=== PATIENT | male | born 1950 | race Caucasian/White ===

== ENCOUNTER → 2017-02-17 | Outpatient (CLI) | payer BC ==
[2017-02-17 09:35] LABS: URINE APPEARANCE CLEAR (CLEAR); URINE BILIRUBIN NEG (NEG); URINE COLOR YELLOW; URINE NITRITE NEG (NEG); URINE SPECIFIC GRAVITY 1.009 (1.000-1.030); UROBILINOGEN NEG (NEG)
[2017-02-17 09:37] LABS: BASO % 0.6 %; BASO ABS # 0.03 K/uL (0-0.2); COMPLETE YES; HEMATOCRIT 42.4 % (42-52); IG% 0.4 %; LYMPH % 30.4 %; LYMPH ABS # 1.55 K/uL (1.2-3.4); MEAN CELL VOLUME 90.4 fL (80-100); MEAN CORPUSCULAR HGB CONC 35.4 g/dl (32-36); MEAN PLATELET VOLUME 10.1 fL (7.4-10.4); MONO % 12.7 %; NEUT % 47.9 %; PLATELET COUNT 183 K/uL (130-400); RED BLOOD COUNT 4.69 M/uL (4.7-6.1)
[2017-02-17 09:49] LABS: MANUAL MICROSCOPIC REQUIRED? NO; REVIEW REQ? NO
[2017-02-17 09:55] LABS: ALT/SGPT 75 U/L (12-78); AST/SGOT 38 U/L (15-37); BLOOD UREA NITROGEN 17 mg/dl (7-18); BUN/CREATININE RATIO 15.5 (10-20); CALCIUM 8.5 mg/dl (8.5-10.1); CARBON DIOXIDE 28 mmol/L (21-32); CHLORIDE 106 mmol/L (98-107); GLUCOSE 92 mg/dl (70-99); POTASSIUM 4.2 mmol/L (3.5-5.1); SODIUM 139 mmol/L (136-145)
[2017-02-17 09:58] LABS: ESTIMATED AVERAGE GLUCOSE 117 mg/dl; HA1C FLAG Normal (Normal)
[2017-02-17 10:06] LABS: ALB/GLOB RATIO 1.1 (0.9-2); ALKALINE PHOSPHATASE 80 U/L (45-117); CHOLESTEROL 130 mg/dl (0-200); CHOLESTEROL/HDL RATIO 2.3; HDL CHOLESTEROL 57 mg/dl; LDL CHOLESTEROL CALCULATED 62 mg/dl; TRIGLYCERIDES 54 mg/dl (0-150); VERY LOW DENSITY LIPOPROT CALC 11 mg/dl
--- NOTE | 2017-02-23 12:48 | CODING QUERY MEDICAL NECESSITY ---
SUPPORTING DIAGNOSIS NEEDED A supporting diagnosis is required for the test/procedure performed on this patient in order for us to be reimbursed by the patient's insurance. Please provide a supporting diagnosis for the following test/procedure listed below next to the test name along with your signature. *If there is no additional diagnosis for this patient that would support the following test/procedure please document that below next to the test/procedure. Test(s)/Procedure(s) that require a supporting diagnosis: * HEMOGLOBIN A1C DIAGNOSIS: * PSA DIAGNOSIS: Provider Signature: Date: Thank you Malina Miles [employer] Once completed, please kindly fax back to [phone] For questions please call [phone]
== END | disposition home or self-care (01) ==
LOC: C.LAB1850 07:27
PROVIDERS: ATTEND Internal Medicine Pulmonary Disease
DX: J45.909 Unspecified asthma, uncomplicated (principal); R73.9 Hyperglycemia, unspecified; N40.1 Benign prostatic hyperplasia with lower urinary tract symptoms

== ENCOUNTER → 2017-10-28 | Day surgery (SDC) | payer BC, OTHER ==
[2017-10-20 14:56] VITALS: Ht 182.9 cm; Wt 90.9 kg
[~2017-10-28] VITALS: Ht 182.9 cm; Wt 90.9 kg
[~2017-10-28] MED LIST: ASPI81TA28 PO; ATOR-22 PO; LIDOCAINE HCL 2% 2 ML VIAL (20MG/ML) ONE; MOME6000; OMEG10007 PO; PROPOFOL IV EMULSION 10 MG/ML 20 ML VIAL ONE; SODIUM CHLORIDE 0.9% 500ML 500 ML IV ONE; TAMS0.4C38 PO; VNTHFA/IN INH
--- NOTE | 2017-10-28 08:46 | Endo History and Physical ---
History & Physical Date of Service: October 28, 2017. Chief Complaint: Screening Referring Physician: Dr. Braun History of Present Illness 67 yo CM who presents for screening colonoscopy. Past Surgical History Hx Cardiac Surgery: No Hx Internal Defibrillator: No Hx Pacemaker: No Hx Abdominal Surgery: No Hx of Implantable Prosthesis: No Hx Cancer Surgery: No Hx Thoracic Surgery: No Hx Orthopedic: No Hx Urinary Tract Surgery: No Family History None Social History Smoking Status: Never Smoker Hx Substance Use: No Hx Alcohol Use: Yes (WINE IN MODERATION) Allergies Coded Allergies: Penicillins (Verified Adverse Reaction, Mild, UNKNOWN, 10/20/17) Current Medications Reported Home Medications Medications Dose Route/Sig Max Daily Dose Days Date Category Dose Instructions Ventolin Hfa (Albuterol) 200 Puffs/87240 Mcg Aers 2 Puffs INH Q6H 10/20/17 Reported Flomax (Tamsulosin Hcl) 0.4 Mg Cap 1 Cap PO HS 30 10/20/17 Reported Mometasone Furoate (Mometasone Furoate (Nasal)) 50 Mcg/Act Spr 2 [place] NA DAILY 10/20/17 Reported TAKES FOR ALLERGIES [place]-3 (Fish Oil) 1 Ea Cap 1 Cap PO DAILY 10/20/17 Reported Lipitor (Atorvastatin Calcium) 20 Mg Tab 1 Tab PO DAILY 30 10/20/17 Reported Aspirin Ec (Aspirin) 81 Mg Tab 81 Mg PO DAILY 10/20/17 Reported Vital Signs Weight (Kilograms): 90.91 Height (Feet): 6 Height (Inches): 0 Date Time Temp Pulse Resp B/P (MAP) Pulse Ox O2 Delivery O2 Flow Rate FiO2 10/28/17 08:11 36.7 77 18 169/94 (119) 99 Room Air Physical Exam General Appearance: WD/WN, no apparent distress Respiratory/Chest: Auscultation: breath sounds normal Cardiovascular: Heart Auscultation: RRR Abdomen: Bowel Sounds: normal Inspection & Palpation: soft, non-distended, no tenderness, guarding & rebound Assessment and Plan Assessment: 67 yo CM who presents for screening colonoscopy. Plan: Proceed with colonoscopy.
--- NOTE | 2017-10-28 09:16 | GI REPORT ---
Patient Name: Gordon Black Procedure Date: 10/28/2017 8:25 AM Date of : 1950 Admit Type: Outpatient Age: 67 Gender: Male Attending MD: Juan Boyce DO Procedure: Colonoscopy Providers: Juan Boyce DO Referring MD: Erik Braun Indications: Screening for colorectal malignant neoplasm Medicines: Monitored Anesthesia Care Complications: No immediate complications. Estimated Blood Loss: Estimated blood loss: none. Procedure: Pre-Anesthesia Assessment: - Prior to the procedure, a History and Physical was performed, and patient medications and allergies were reviewed. The patient's tolerance of previous anesthesia was also reviewed. The risks and benefits of the procedure and the sedation options and risks were discussed with the patient. All questions were answered, and informed consent was obtained. Prior Anticoagulants: The patient has taken aspirin, last dose was 4 days prior to procedure. ASA Grade Assessment: II - A patient with mild systemic disease. After reviewing the risks and benefits, the patient was deemed in satisfactory condition to undergo the procedure. After I obtained informed consent, the scope was passed under direct vision. Throughout the procedure, the patient's blood pressure, pulse, and oxygen saturations were monitored continuously. The scope was introduced through the anus and advanced to the terminal ileum. The colonoscopy was performed without difficulty. The patient tolerated the procedure well. The quality of the bowel preparation was good. The terminal ileum, ileocecal valve, appendiceal orifice, and rectum were photographed. Findings: A 4 mm polyp was found in the transverse colon. The polyp was sessile. The polyp was removed with a cold snare. Resection and retrieval were complete. Two sessile polyps were found in the rectum and sigmoid colon. The polyps were 8 to 10 mm in size. These polyps were removed with a hot snare. Resection and retrieval were complete. Multiple small-mouthed diverticula were found in the sigmoid colon. Non-bleeding internal hemorrhoids were found during retroflexion. The hemorrhoids were small. Impression: - One 4 mm polyp in the transverse colon, removed with a cold snare. Resected and retrieved. - Two 8 to 10 mm polyps in the rectum and in the sigmoid colon, removed with a hot snare. Resected and retrieved. - Diverticulosis in the sigmoid colon. - Non-bleeding internal hemorrhoids. Recommendation: - Resume previous diet. - Continue present medications. - Repeat colonoscopy for surveillance based on pathology results. - Return to primary care physician as previously scheduled. Juan Boyce, DO 10/28/2017 9:15:43 AM This report has been signed electronically. Note Initiated On: 10/28/2017 8:25 AM Number of Addenda: 0 I attest to the content of the Intraoperative Record and orders documented therein, exceptions below {[id number]}
--- NOTE | 2017-10-28 09:17 | Discharge Instructions ---
Endoscopy Patient Instructions Date / Procedure(s) Performed October 28, 2017. Colonoscopy Allergy Information Coded Allergies: Penicillins (Verified Adverse Reaction, Mild, UNKNOWN, 10/20/17) Discharge Date / Findings October 28, 2017. Colon polyps Rectal polyp Diverticulosis Internal hemorrhoids Medication Instructions OK to resume all medications today as prescribed Reported Home Medications Medications Dose Route/Sig Max Daily Dose Days Date Category Dose Instructions Ventolin Hfa (Albuterol) 200 Puffs/83354 Mcg Aers 2 Puffs INH Q6H 10/20/17 Reported Flomax (Tamsulosin Hcl) 0.4 Mg Cap 1 Cap PO HS 30 10/20/17 Reported Mometasone Furoate (Mometasone Furoate (Nasal)) 50 Mcg/Act Spr 2 [place] NA DAILY 10/20/17 Reported TAKES FOR ALLERGIES [place]-3 (Fish Oil) 1 Ea Cap 1 Cap PO DAILY 10/20/17 Reported Lipitor (Atorvastatin Calcium) 20 Mg Tab 1 Tab PO DAILY 30 10/20/17 Reported Aspirin Ec (Aspirin) 81 Mg Tab 81 Mg PO DAILY 10/20/17 Reported Provider Instructions Activity Restrictions - No exercising or heavy lifting for 24 hours. - Do not drink alcohol the day of the procedure. - Do not drive a car or operate machinery until the day after the procedure. - Do not make any important decisions or sign important papers in 24 hours after the procedure. Following Day: - Return to full activity which may include returning to work/school. Diet Start your diet with liquids and light foods (jello, soup, juice, toast). Then eat your usual diet if not nauseated. Treatment For Common After Affects For mild abdominal pain, bloating, or excessive gas: - Rest - Eat lightly - Lie on right side Follow-Up Information Follow-up with Dr. Braun as scheduled Anesthesia Information What You Should Know You have had a procedure that required some medicine to reduce anxiety and discomfort. This treatment is called moderate sedation. After receiving the treatment, you may be sleepy, but you will be able to breathe on your own. The effects of the treatment may last for several hours. Follow these instructions along with Activity/Diet recommendations noted above: * Do NOT do anything where dizziness or clumsiness would be dangerous. * Rest quietly at home today, then you can be up and about tomorrow. * Have a responsible person stay with you the rest of today. * You may have had an I.V. today. If so, you may take the dressing off later today. Recommendations Call your doctor if: * Trouble breathing * Continuous vomiting for more than 24 hours * Temperature above 101 degrees * Severe abdominal pain or bloating * Pain not relieved by pain medicine ordered * There is increased drainage or redness from any incision * A large amount of rectal bleeding greater than 2-3 tablespoons. (If you had a polyp/s removed or have hemorrhoids, a small amount of blood - from the rectum is to be expected.) * You have any unanswered questions or concerns. IN THE EVENT OF A SERIOUS EMERGENCY, GO TO THE NEAREST EMERGENCY ROOM Your discharge instructions were prepared by provider Juan Boyce. Patient Instructions Signature Page Gordon Black Patient (or Guardian) Signature/Date: I have read and understand the instructions given to me by my caregivers. Caregiver/RN/Doctor Signature/Date: The above-named patient and/or guardian has received patient instructions on this date. + Original Patient Signature Page (only) stays with chart. Please make copy for patient.
[2017-10-28 09:49] VITALS: BP 162/93; PULSE 67; O2SAT 100
--- NOTE | 2017-10-28 09:49 | Anesthesiology Progress Note ---
Anesthesia Post Op Note Date & Time October 28, 2017 at 09:48 Vital Signs Pain Intensity: 0 Vital Signs Past 12 Hours Date Time Temp Pulse Resp B/P (MAP) Pulse Ox O2 Delivery O2 Flow Rate FiO2 10/28/17 09:31 66 18 123/92 (102) 99 Room Air 10/28/17 09:16 73 18 124/67 (86) 99 Room Air 10/28/17 08:11 36.7 77 18 169/94 (119) 99 Room Air Notes Mental Status: alert / awake / arousable, participated in evaluation Pt Amnestic to Procedure: Yes Nausea / Vomiting: adequately controlled Pain: adequately controlled Airway Patency, RR, SpO2: stable & adequate BP & HR: stable & adequate Hydration State: stable & adequate Anesthetic Complications: no major complications apparent
== END | disposition home health service (06) ==
LOC: C.GI 07:26
PROVIDERS: ATTEND Internal Medicine
DX: Z12.11 Encounter for screening for malignant neoplasm of colon (principal); K62.1 Rectal polyp; D12.5 Benign neoplasm of sigmoid colon; D12.3 Benign neoplasm of transverse colon; K57.30 Diverticulosis of large intestine without perforation or abscess without bleeding; K64.8 Other hemorrhoids; J45.909 Unspecified asthma, uncomplicated; Z88.0 Allergy status to penicillin; Z79.899 Other long term (current) drug therapy; Z79.82 Long term (current) use of aspirin

== ENCOUNTER → 2018-02-10 | Outpatient (CLI) | payer OTHER ==
[~2018-02-10] MED LIST changes: -LIDOCAINE HCL 2% 2 ML VIAL (20MG/ML) ONE; -PROPOFOL IV EMULSION 10 MG/ML 20 ML VIAL ONE; -SODIUM CHLORIDE 0.9% 500ML 500 ML IV ONE
[2018-02-10 10:11] LABS: HEMOGLOBIN A1C 5.8 % (4.5-5.6)
[2018-02-10 10:16] LABS: ALBUMIN 4.1 gm/dl (3.4-5.0); ALKALINE PHOSPHATASE 82 U/L (45-117); ALT/SGPT 53 U/L (12-78); AST/SGOT 32 U/L (15-37); BLOOD UREA NITROGEN 15 mg/dl (7-18); CALCIUM 8.5 mg/dl (8.5-10.1); CARBON DIOXIDE 28 mmol/L (21-32); CHOLESTEROL 134 mg/dl (0-200); GLUCOSE 89 mg/dl (70-99); LDL CHOLESTEROL CALCULATED 66 mg/dl; POTASSIUM 3.9 mmol/L (3.5-5.1); SODIUM 136 mmol/L (136-145); TOTAL PROTEIN 7.5 gm/dl (6.4-8.2)
== END | disposition home or self-care (01) ==
LOC: C.LAB1850 08:03
PROVIDERS: ATTEND Internal Medicine Pulmonary Disease
DX: J30.9 Allergic rhinitis, unspecified (principal); J45.909 Unspecified asthma, uncomplicated; R73.9 Hyperglycemia, unspecified; E78.5 Hyperlipidemia, unspecified

== ENCOUNTER 2023-03-26 02:58 | Observation (INO) ==
[2023-03-26] MEDS ORDERED: OPTIRAY 320 125ml IV ONE (03:28)
--- NOTE | 2023-03-26 03:56 | CT Scan Report ---
Exam(s): CT HEAD Without Contrast EXAM: CT Head Without Intravenous Contrast CLINICAL HISTORY: Reason for exam: neuro deficit, acute stroke suspected. TECHNIQUE: Axial computed tomography images of the head/brain without intravenous contrast. CTDI is 46.15 mGy and DLP is 871.05 mGy-cm. Automated exposure control was utilized for the study. A dose lowering technique was utilized adhering to the principles of ALARA. COMPARISON: None. FINDINGS: Brain: Mild generalized brain atrophy. Decreased attenuation within the deep white matter compatible with mild microangiopathic white matter disease. No hemorrhage. Ventricles: Unremarkable. No ventriculomegaly. Bones/joints: Unremarkable. No acute fracture. Soft tissues: Unremarkable. Sinuses: Mucosal thickening of bilateral ethmoids and maxillary sinuses, likely sequela of prior sinusitis. No air-fluid level seen. Mastoid air cells: Unremarkable as visualized. No mastoid effusion. IMPRESSION: No acute intracranial process. Communications: Call Doctor Stroke Electronically signed by: Annika Bonilla MD 03/26/23 03:55 AM
[2023-03-26 03:57] LABS: Basophils # (auto) 0.02 K/uL (0.00-0.20); Basophils % (auto) 0.3 %; Eosinophils # (auto) 0.05 K/uL (0.00-0.50); Eosinophils % (auto) 0.7 %; Hematocrit (blood only) 32.2 % (42.0-52.0); Hemoglobin 11.5 g/dl (14.0-18.0); Immature Granulocytes # (auto) 0.03 K/uL (0.01-0.20); Immature Granulocytes % (auto) 0.4 %; Lymphocytes # (auto) 0.77 K/uL (1.20-3.40); Lymphocytes % (auto) 10.8 %; Mean Corpuscular Hemoglobin 31.4 pg (25.0-34.0); Mean Corpuscular Hgb Conc 35.7 g/dL (32.0-36.0); Mean Platelet Volume 10.5 fL (9.4-12.4); Monocytes # (auto) 0.71 K/uL (0.11-0.59); Neutrophils # (auto) 5.53 K/uL (1.40-6.50); Neutrophils % (auto) 77.8 %; Platelet Count 103 K/uL (130-400); Red Blood Count 3.66 M/uL (4.70-6.10); White Blood Count 7.11 K/ul (4.8-10.8)
--- NOTE | 2023-03-26 03:59 | CT Scan Report ---
Exam(s): CTA NECK With Contrast IV Amt: 118 cc's optiray 320 EXAM: CT Angiography Neck With Intravenous Contrast CLINICAL HISTORY: Reason for exam: neuro deficit, acute stroke suspected. TECHNIQUE: Routine carotid CT angiography protocol was performed with intravenous contrast. NASCET criteria using the distal ICAs for comparison were used for evaluation of stenoses. CTDI is 13.68 mGy and DLP is 568.13 mGy-cm. Automated exposure control was utilized for the study. A dose lowering technique was utilized adhering to the principles of ALARA. MIP reconstructed images were created and reviewed. CONTRAST: Patient received 118 cc's optiray 320 of IV contrast COMPARISON: None. FINDINGS: VASCULATURE: Right common carotid artery: Unremarkable. No occlusion or significant stenosis. No dissection. Right internal carotid artery: Minimal calcified plaque at the right carotid bulb. Extracranial segment is patent with no occlusion or significant stenosis. No dissection. Right external carotid artery: Unremarkable. No occlusion. Right vertebral artery: Unremarkable. No occlusion or significant stenosis. No dissection. Left common carotid artery: Unremarkable. No occlusion or significant stenosis. No dissection. Left internal carotid artery: Mild calcified plaque at the left carotid bulb. Mild calcified plaque at the origin of the left internal carotid artery with no stenosis. No dissection. Left external carotid artery: Unremarkable. No occlusion. Left vertebral artery: Unremarkable. No occlusion or significant stenosis. No dissection. Brachiocephalic and subclavian arteries: [place] origin of the great vessels. Aorta: Calcified atherosclerotic disease throughout the aortic arch with no aneurysmal dilatation. NECK: Bones/joints: Unremarkable. Soft tissues: Unremarkable. Lung apices: Clear. CAROTID STENOSIS REFERENCE USING NASCET CRITERIA: % ICA stenosis = (1 - narrowest ICA diameter/diameter of distal cervical ICA) x 100. Mild - <50% stenosis. Moderate - 50-69% stenosis. Severe - 70-94% stenosis. Near occlusion - 95-99% stenosis. Occluded - 100% stenosis. IMPRESSION: Mild calcified plaque predominantly in the region of carotid bulb region otherwise no significant stenosis, occlusion or dissection involving the bilateral carotid and vertebral arteries. Communications: Call Doctor Stroke Electronically signed by: Annika Bonilla MD 03/26/23 03:58 AM
--- NOTE | 2023-03-26 04:03 | CT Scan Report ---
Exam(s): CTA HEAD With Contrast IV Amt: 118 cc's EXAM: CT Angiography Head With Intravenous Contrast CLINICAL HISTORY: Reason for exam: neuro deficit, acute stroke suspected. TECHNIQUE: Axial computed tomographic angiography images of the head with intravenous contrast. CTDI is 46.15 mGy and DLP is 871.05 mGy-cm. Automated exposure control was utilized for the study. A dose lowering technique was utilized adhering to the principles of ALARA. MIP reconstructed images were created and reviewed. CONTRAST: Patient received 118 cc's of IV contrast COMPARISON: None. FINDINGS: Right internal carotid artery: Mild calcified plaque through the cavernous portion of the right internal carotid artery with less than 50% diameter stenosis. No aneurysm. Right anterior cerebral artery: Unremarkable. No occlusion or significant stenosis. No aneurysm. Right middle cerebral artery: Unremarkable. No occlusion or significant stenosis. No aneurysm. Right posterior cerebral artery: Unremarkable. No occlusion or significant stenosis. No aneurysm. Right vertebral artery: Unremarkable as visualized. Left internal carotid artery: Mild calcified plaque through the cavernous portion of the left internal carotid artery with less than 50% diameter stenosis. No aneurysm. Left anterior cerebral artery: Unremarkable. No occlusion or significant stenosis. No aneurysm. Left middle cerebral artery: Unremarkable. No occlusion or significant stenosis. No aneurysm. Left posterior cerebral artery: Unremarkable. No occlusion or significant stenosis. No aneurysm. Left vertebral artery: Unremarkable as visualized. Basilar artery: Unremarkable. No occlusion or significant stenosis. No aneurysm. 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 Communications: Call Doctor Stroke Electronically signed by: Annika Bonilla MD 03/26/23 04:02 AM
[2023-03-26 04:23] LABS: INR 1.2 (0.9-1.1); Partial Thromboplastin Ratio 1.1; Partial Thromboplastin Time 32.2 Seconds (21.0-31.0); Prothrombin Time 12.5 Seconds (9.0-12.0)
[2023-03-26 04:32] LABS: Albumin Globulin Ratio 1.7 (0.9-2); Albumin Level 3.8 gm/dl (3.4-5.0); Bilirubin,Total 1.7 mg/dl (0.2-1.0); Calcium 7.6 mg/dl (8.6-10.3); Creatinine Clr Calc Pharmacy 118.9 ml/min; Est GFR (African American) 111.9 ml/min; Est GFR (Non-African American) 96.5 ml/min; Globulin 2.2 gm/dl (2.5-4.0); Magnesium 1.6 mg/dl (1.7-2.4)
[2023-03-26] MEDS: MAGNESIUM SULFATE / D5W 1 GM/100 ML BAG IV SCH ×2 (04:37→05:32)
[2023-03-26 04:39] LABS: Troponin I High Sensitivity 438.2 pg/ml (0-20)
--- NOTE | 2023-03-26 04:39 | Emergency Department Note ---
Impression & Plan Acute hyponatremia, Polydipsia, Acute alteration in mental status, Status post ablation operation for arrhythmia, Chronic anticoagulation ED Provider Note CHIEF COMPLAINT: Altered mental status HISTORY OF PRESENT ILLNESS: This 72-year-old patient with past medical history of atrial fibrillation status post ablation 2 days ago, hyperlipidemia, adenoma of the colon, asthma, patent foramen ovale, BPH, hearing loss presents to the emergency department with his stating that he is altered. The patient had 2 days ago, spent the night at [facility] and was discharged home yesterday. He presented to our emergency department late last evening with complaints of urinary retention. UA was performed and was negative, postvoid residual was low. The patient was discharged home but developed vomiting on the way home. Patient's is able to get him settled and independent. But at approximately 2 AM, the patient woke up stating something was not quite right, he was nauseated and felt as though he could not urinate. He asked to come back to the hospital. states on his way here and upon arrival in triage, patient was unable to follow commands. Patient has no fever, head injuries. He has no complaints of pain at this time. REVIEW OF SYSTEMS: History largely obtained from the patient's , he is unable to complete review of systems secondary to his mental status. ALLERGIES: see below MEDICATIONS: see below PMH: see below SOCIAL HISTORY: see below DDx: Electrolyte abnormality, acute stroke, intracranial hemorrhage, intracranial mass, cardiac arrhythmia, UTI among others. PHYSICAL EXAM: Vital signs reviewed. General: Well-appearing 72-year-old male, anxious but in no significant distress HEENT: No scleral icterus, PERRLA, neck supple. Moist mucous membranes. Cardiovascular: Regular rate and rhythm, no extra sounds. Pulmonary: Clear to auscultation bilaterally, normal work of breathing. Abdomen: Soft, nontender, nondistended, positive bowel sounds. Musculoskeletal: Atraumatic, no peripheral edema. Neurologic: Patient awake alert and oriented x 3, speech is clear Skin: Warm, dry, no rash EMERGENCY DEPARTMENT COURSE/MDM: This patient was evaluated and appeared to be in no significant distress. Patient is noted to have deficits with regards to person, place and current events. He was unable to state his 's name initially. It did take several attempts but then he was correct. He also could not tell me his birthdate or current age on his first and second attempts. There is no gross motor deficit. A stroke alert was called from triage. CT/CTA of the head and neck were performed and were read as below. There is no e vidence of large vessel occlusion or acute infarct. The patient has been on his Eliquis since the procedure, last dose was 730 last evening, 03/25/2023. The stroke attending, Dr. Lopez did consult on the patient via telehealth. During her exam, the patient's laboratory work resulted with a sodium of 115. Just 2 days ago, the patient had a sodium of 136. On further questioning it is clear that the patient has been trying to drink water to help him urinate. I suspect the hyponatremia acutely is secondary to free water ingestion. Patient's case was discussed with the hospitalist service who will evaluate the patient for admission and further management. Patient and are aware of the plan and agreed. MONITORING: An order for cardiac monitoring was placed and the patient is noted to be in a normal sinus rhythm at 67 beats per minute. RADIOLOGY: Chest x-ray to my interpretation reveals likely pulmonary vascular congestion. Otherwise defer to radiology. Head CT to my interpretation reveals no evidence of acute intracranial hemorrhage or acute infarct, defer to radiology's overread. CTA of the head and neck per radiology reveals mild stenosis of the carotid bulb of internal carotid arteries bilaterally. Please see final read below. EKG: To my interpretation reveals normal sinus rhythm at 75 bpm. QTc is 448. Normal ST segments. No PVC, no PAC. When compared to previous dated September 15, 2018, PVCs have resolved DISPOSITION: Admission I have personally spent 45 minutes of critical care time in the direct management of this patient. This was a life/limb threatening event. This 45 minutes is in excess of all separately billable procedures. Past Med/Surg History Medical History Asthma rare use of inhaler Atrial flutter Status post catheter based therapy 2018 BPH with obstruction/lower urinary tract symptoms History of colon polyps History of COVID-19 10/2021- fever, paxlovid, resolved Hyperlipidemia Internal hemorrhoids Paroxysmal atrial fibrillation (12/29/22) recent episode from 12/18-12/24; now resolved, no longer taking metoprolol at this time recent episode started 10/22/22- started metoprolol, messaged Dr Paris thru [facility], will see him 10/29/22-- states Dr Paris does not feel colonoscopy needs to be rescheduled due to recent a fib issues Patent foramen ovale Rosacea Sensorineural hearing loss (SNHL) of both ears Surgical History History of cardiac radiofrequency ablation 2017- [facility] History of colonoscopy (~2022) Family History Father Myocardial infarction Mother Leukemia Other Hypertension Denies family history of Crohn's disease Colorectal cancer Ulcerative colitis Social History Smoking Status: Never smoker Second Hand Exposure: No; Do You Dip or Chew Tobacco: No; Hx Alcohol Use: Yes Alcohol type: wine Hx Substance Use: No Preferred Language: Iranian Communication Ability: Effective 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: No Beliefs That Will Affect Care: None Current Living Situation: Spouse Feels Safe at Home: Yes Assistive Devices: Glasses Allergies Allergies Allergy/AdvReac Type Severity Reaction Status Date / Time hazelnut Allergy Unknown Swelling Verified 03/23/23 09:30 of Lip/Tongue/Throat kiwi Allergy Unknown Swelling Verified 03/23/23 09:30 of Lip/Tongue/Throat Penicillins AdvReac Mild UNKNOWN Verified 03/23/23 09:30 Home Meds Previous Rx's Medication Instructions Recorded ketoconazole 2 % shampoo 1 applic topical .COMPLEX #120 mL 11/17/21 tadalafil 5 mg tablet 5 mg PO DAILY #15 tabs 12/24/21 atorvastatin 20 mg tablet See Rx Instructions .Route 04/26/22 .COMPLEX #90 tabs finasteride 5 mg tablet 5 mg PO DAILY #90 tabs 09/08/22 tamsulosin 0.4 mg capsule 0.4 mg PO HS #90 caps 09/08/22 albuterol sulfate 90 mcg/actuation 2 puff inhalation Q6H PRN 10/29/22 aerosol inhaler Shortness Of Breath Or Wheezing #8.5 grams metronidazole 0.75 % topical cream 1 applic topical BID #45 grams 12/31/22 metoprolol tartrate 25 mg tablet 25 mg PO BID PRN atrial 01/31/23 fibrillation #180 tabs apixaban 5 mg tablet (Eliquis) 5 mg PO BID #180 tabs 03/14/23 ketoconazole 2 % topical cream 1 applic topical DAILY #30 grams 03/23/23 Results & Data (ED) Vital Signs Vital Signs - 24 hr 03/26/23 03:04 03/26/23 03:26 03/26/23 04:00 Temperature 36.4 C L Temperature Source Temporal Artery Scan Pulse Rate 67 82 Pulse Rate [Finger] 75 Pulse Rhythm Regular Pulse Strength Normal Respiratory Rate 20 16 Respiratory Effort / Characteristics Non-Labored Spontaneous Respiratory Depth Normal Respiratory Pattern Blood Pressure 141/70 H Blood Pressure [Right Arm] 126/84 Blood Pressure Mean 93 Blood Pressure Mean [Right Arm] 98 Blood Pressure Position Sitting Pulse Oximetry 94 94 Oxygen Delivery Method Room Air Room Air Sepsis Recent Fever Within 48 Hours No Sepsis New/Unexplained Change in Mental Status N/A Sepsis Action Taken by Nursing No Action Required 03/26/23 06:18 Temperature Temperature Source Pulse Rate Pulse Rate [Finger] 61 Pulse Rhythm Pulse Strength Respiratory Rate 19 Respiratory Effort / Characteristics Non-Labored Spontaneous Respiratory Depth Normal Respiratory Pattern Regular Blood Pressure Blood Pressure [Right Arm] 128/80 Blood Pressure Mean Blood Pressure Mean [Right Arm] 96 Blood Pressure Position Pulse Oximetry 95 Oxygen Delivery Method Room Air Sepsis Recent Fever Within 48 Hours Sepsis New/Unexplained Change in Mental Status Sepsis Action Taken by [facility] Medications Current Medication List: was personally reviewed by me Laboratory Data Attestation: I reviewed the patient's lab results. 03/26/23 03:38 03/26/23 03:38 Lab Results 03/26/23 03/26/23 03/26/23 Range/Units 03:27 03:31 03:38 WBC 7.11 (4.8-10.8) K/ul RBC 3.66 L (4.70-6.10) M/uL Hgb 11.5 L (14.0-18.0) g/dl POC Hgb 12.6 L (14.0-18.0) g/dl Hct 32.2 L (42.0-52.0) % POC Hct 37 L (42-52) % MCV 88.0 (80.0-100.0) fL MCH 31.4 (25.0-34.0) pg MCHC 35.7 (32.0-36.0) g/dL RDW Std Deviation 42.0 (36.4-46.3) fL RDW Coeff of Maxine 13.0 (11.5-14.5) % Plt Count 103 L (130-400) K/uL MPV 10.5 (9.4-12.4) fL Immature Gran % (Auto) 0.4 % Neut % (Auto) 77.8 % Lymph % (Auto) 10.8 % Yancey % (Auto) 10.0 % Eos % (Auto) 0.7 % Baso % (Auto) 0.3 % Neut # (Auto) 5.53 (1.40-6.50) K/uL Lymph # (Auto) 0.77 L (1.20-3.40) K/uL Yancey # (Auto) 0.71 H (0.11-0.59) K/uL Eos # (Auto) 0.05 (0.00-0.50) K/uL Baso # (Auto) 0.02 (0.00-0.20) K/uL Immature Gran # (Auto) 0.03 (0.01-0.20) K/uL PT (9.0-12.0) Seconds INR (0.9-1.1) APTT (21.0-31.0) Seconds PTT Ratio POC Sodium 121 L (135-144) mmol/L Sodium (136-145) mmol/L POC Potassium 3.8 (3.3-5.0) mmol/L Potassium (3.5-5.1) mmol/L POC Chloride 90 L (101-112) mmol/L Chloride (98-107) mmol/L Carbon Dioxide (21-32) mmol/L POC Total CO2 18 L (24-31) mmol/L Anion Gap (3-11) POC Anion Gap 17.0 (16-25) mmol/L POC BUN 11 (7-18) mg/dl BUN (6-23) mg/dl Creatinine (0.6-1.4) mg/dl POC Creatinine 0.6 (0.6-1.3) mg/dl Est Cr Clr Drug Dosing ml/min Est GFR ( Amer) ml/min Est GFR (Non-Af Amer) ml/min BUN/Creatinine Ratio (10-20) Glucose (70-99(Fasting)) mg/dl POC Glucose 120 H (70-99) mg/dl POC Glucose (other) 119 H (70-99) mg/dl Calcium (8.6-10.3) mg/dl POC Ioniz Calcium Joel 0.93 L (1.12-1.32) mmol/l Magnesium (1.7-2.4) mg/dl Total Bilirubin (0.2-1.0) mg/dl AST (13-39) U/L ALT (7-52) U/L Alkaline Phosphatase (34-104) U/L Troponin I High Sens (0-20) pg/ml Total Protein (6.0-8.3) gm/dl Albumin (3.4-5.0) gm/dl Globulin (2.5-4.0) gm/dl Albumin/Globulin Ratio (0.9-2) SARS-CoV-2, RNA, NAAT (NEGATIVE) 03/26/23 03/26/23 03/26/23 Range/Units 03:38 03:38 04:45 WBC (4.8-10.8) K/ul RBC (4.70-6.10) M/uL Hgb (14.0-18.0) g/dl POC Hgb (14.0-18.0) g/dl Hct (42.0-52.0) % POC Hct (42-52) % MCV (80.0-100.0) fL MCH (25.0-34.0) pg MCHC (32.0-36.0) g/dL RDW Std Deviation (36.4-46.3) fL RDW Coeff of Maxine (11.5-14.5) % Plt Count (130-400) K/uL MPV (9.4-12.4) fL Immature Gran % (Auto) % Neut % (Auto) % Lymph % (Auto) % Yancey % (Auto) % Eos % (Auto) % Baso % (Auto) % Neut # (Auto) (1.40-6.50) K/uL Lymph # (Auto) (1.20-3.40) K/uL Yancey # (Auto) (0.11-0.59) K/uL Eos # (Auto) (0.00-0.50) K/uL Baso # (Auto) (0.00-0.20) K/uL Immature Gran # (Auto) (0.01-0.20) K/uL PT 12.5 H (9.0-12.0) Seconds INR 1.2 H (0.9-1.1) APTT 32.2 H (21.0-31.0) Seconds PTT Ratio 1.1 POC Sodium (135-144) mmol/L Sodium 115 L* (136-145) mmol/L POC Potassium (3.3-5.0) mmol/L Potassium 4.0 (3.5-5.1) mmol/L POC Chloride (101-112) mmol/L Chloride 89 L (98-107) mmol/L Carbon Dioxide 20 L (21-32) mmol/L POC Total CO2 (24-31) mmol/L Anion Gap 6 (3-11) POC Anion Gap (16-25) mmol/L POC BUN (7-18) mg/dl BUN 13 (6-23) mg/dl Creatinine 0.65 (0.6-1.4) mg/dl POC Creatinine (0.6-1.3) mg/dl Est Cr Clr Drug Dosing 118.9 ml/min Est GFR ( Amer) 111.9 ml/min Est GFR (Non-Af Amer) 96.5 ml/min BUN/Creatinine Ratio 20.0 (10-20) Glucose 123 H (70-99(Fasting)) mg/dl POC Glucose (70-99) mg/dl POC Glucose (other) (70-99) mg/dl Calcium 7.6 L (8.6-10.3) mg/dl POC Ioniz Calcium Joel (1.12-1.32) mmol/l Magnesium 1.6 L (1.7-2.4) mg/dl Total Bilirubin 1.7 H (0.2-1.0) mg/dl AST 33 (13-39) U/L ALT 28 (7-52) U/L Alkaline Phosphatase 68 (34-104) U/L Troponin I High Sens 438.2 H* (0-20) pg/ml Total Protein 6.0 (6.0-8.3) gm/dl Albumin 3.8 (3.4-5.0) gm/dl Globulin 2.2 L (2.5-4.0) gm/dl Albumin/Globulin Ratio 1.7 (0.9-2) SARS-CoV-2, RNA, NAAT NEGATIVE (NEGATIVE) Administered Medications Discontinued Medications Furosemide (Furosemide Inj 20 Mg/2 Ml Vial) 20 mg IV ONE ONE Stop: 03/26/23 05:13 Last Admin: 03/26/23 06:08 Dose: 20 mg Documented By: CHASITY Sodium Chloride (Nss) 1,000 mls @ 125 mls/hr IV .Q8H ADAM Stop: 04/25/23 04:44 Last Infusion: 03/26/23 06:14 Dose: 0 mls/hr Documented By: graduate fellow: 03/26/23 04:37 Dose: 125 mls/hr Documented By: MILIND Magnesium Sulfate/Dextrose (Magnesium Sulfate / D5w) 1 gm in 100 mls @ 200 mls/hr IV Q30M ADAM Stop: 03/26/23 05:33 Last Infusion: 03/26/23 06:04 Dose: 0 mls/hr Documented By: graduate fellow: 03/26/23 05:32 Dose: 200 mls/hr Documented By: Infusion: 03/26/23 05:07 Dose: 200 mls/hr Documented By: graduate fellow: 03/26/23 04:37 Dose: 200 mls/hr Documented By: MILIND Sodium Chloride (Hypertonic Saline 3%) 50 mls @ 300 mls/hr IV .Q10M ONE; Protocol Stop: 03/26/23 05:21 Last Infusion: 03/26/23 06:03 Dose: 0 mls/hr Documented By: CHASITY Co-signed By: JOHANNY Admin: 03/26/23 05:43 Dose: 300 mls/hr Documented By: CHASITY Co-signed By: MILIND Ioversol (Optiray 320 125ml) 118 ml IV ONCE ONE Stop: 03/26/23 03:29 Last Admin: 03/26/23 03:28 Dose: 118 ml Documented By: SARA Imaging Data Radiologist's Impression: Chest X-Ray 03/26/23 03:10 XR chest 1V portable CLINICAL HISTORY: neuro deficit, acute stroke suspected COMPARISON STUDY: Chest radiograph September 15, 2018. FINDINGS: There is no pneumothorax or pleural effusion. Lung volumes are mildly diminished consolidation is noted. There is prominence of the pulmonary vasculature. Cardiac mediastinal silhouette is stable. IMPRESSION: Prominence of the pulmonary vasculature. This is likely due to a hypoventilatory study. Pulmonary vascular congestion could appear similar. No overt pulmonary edema. ACT 112: Negative or not required by law. Electronically signed by: Hunter Rodrigues M.D. 03/26/2023 6:[address] 03/26/23 03:10 CR Exam(s): CT HEAD Without Contrast EXAM: CT Head Without Intravenous Contrast CLINICAL HISTORY: Reason for exam: neuro deficit, acute stroke suspected. TECHNIQUE: Axial computed tomography images of the head/brain without intravenous contrast. CTDI is 46.15 mGy and DLP is 871.05 mGy-cm. Automated exposure control was utilized for the study. A dose lowering technique was utilized adhering to the principles of ALARA. COMPARISON: None. FINDINGS: Brain: Mild generalized brain atrophy. Decreased attenuation within the deep white matter compatible with mild microangiopathic white matter disease. No hemorrhage. Ventricles: Unremarkable. No ventriculomegaly. Bones/joints: Unremarkable. No acute fracture. Soft tissues: Unremarkable. Sinuses: Mucosal thickening of bilateral ethmoids and maxillary sinuses, likely sequela of prior sinusitis. No air-fluid level seen. Mastoid air cells: Unremarkable as visualized. No mastoid effusion. IMPRESSION: No acute intracranial process. Communications: Call Doctor Stroke Electronically signed by: Annika Bonilla MD 03/26/23 03:55 AM Head CTA 03/26/23 03:10 CR Exam(s): CTA HEAD With Contrast IV Amt: 118 cc's EXAM: CT Angiography Head With Intravenous Contrast CLINICAL HISTORY: Reason for exam: neuro deficit, acute stroke suspected. TECHNIQUE: Axial computed tomographic angiography images of the head with intravenous contrast. CTDI is 46.15 mGy and DLP is 871.05 mGy-cm. Automated exposure control was utilized for the study. A dose lowering technique was utilized adhering to the principles of ALARA. MIP reconstructed images were created and reviewed. CONTRAST: Patient received 118 cc's of IV contrast COMPARISON: None. FINDINGS: Right internal carotid artery: Mild calcified plaque through the cavernous portion of the right internal carotid artery with less than 50% diameter stenosis. No aneurysm. Right anterior cerebral artery: Unremarkable. No occlusion or significant stenosis. No aneurysm. Right middle cerebral artery: Unremarkable. No occlusion or significant stenosis. No aneurysm. Right posterior cerebral artery: Unremarkable. No occlusion or significant stenosis. No aneurysm. Right vertebral artery: Unremarkable as visualized. Left internal carotid artery: Mild calcified plaque through the cavernous portion of the left internal carotid artery with less than 50% diameter stenosis. No aneurysm. Left anterior cerebral artery: Unremarkable. No occlusion or significant stenosis. No aneurysm. Left middle cerebral artery: Unremarkable. No occlusion or significant stenosis. No aneurysm. Left posterior cerebral artery: Unremarkable. No occlusion or significant stenosis. No aneurysm. Left vertebral artery: Unremarkable as visualized. Basilar artery: Unremarkable. No occlusion or significant stenosis. No aneurysm. 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 Communications: Call Doctor Stroke Electronically signed by: Annika oBnilla MD 03/26/23 04:02 AM Neck CTA 03/26/23 03:10 CR Exam(s): CTA NECK With Contrast IV Amt: 118 cc's optiray 320 EXAM: CT Angiography Neck With Intravenous Contrast CLINICAL HISTORY: Reason for exam: neuro deficit, acute stroke suspected. TECHNIQUE: Routine carotid CT angiography protocol was performed with intravenous contrast. NASCET criteria using the distal ICAs for comparison were used for evaluation of stenoses. CTDI is 13.68 mGy and DLP is 568.13 mGy-cm. Automated exposure control was utilized for the study. A dose lowering technique was utilized adhering to the principles of ALARA. MIP reconstructed images were created and reviewed. CONTRAST: Patient received 118 cc's optiray 320 of IV contrast COMPARISON: None. FINDINGS: VASCULATURE: Right common carotid artery: Unremarkable. No occlusion or significant stenosis. No dissection. Right internal carotid artery: Minimal calcified plaque at the right carotid bulb. Extracranial segment is patent with no occlusion or significant stenosis. No dissection. Right external carotid artery: Unremarkable. No occlusion. Right vertebral artery: Unremarkable. No occlusion or significant stenosis. No dissection. Left common carotid artery: Unremarkable. No occlusion or significant stenosis. No dissection. Left internal carotid artery: Mild calcified plaque at the left carotid bulb. Mild calcified plaque at the origin of the left internal carotid artery with no stenosis. No dissection. Left external carotid artery: Unremarkable. No occlusion. Left vertebral artery: Unremarkable. No occlusion or significant stenosis. No dissection. Brachiocephalic and subclavian arteries: [place] origin of the great vessels. Aorta: Calcified atherosclerotic disease throughout the aortic arch with no aneurysmal dilatation. NECK: Bones/joints: Unremarkable. Soft tissues: Unremarkable. Lung apices: Clear. CAROTID STENOSIS REFERENCE USING NASCET CRITERIA: % ICA stenosis = (1 - narrowest ICA diameter/diameter of distal cervical ICA) x 100. Mild - <50% stenosis. Moderate - 50-69% stenosis. Severe - 70-94% stenosis. Near occlusion - 95-99% stenosis. Occluded - 100% stenosis. IMPRESSION: Mild calcified plaque predominantly in the region of carotid bulb region otherwise no significant stenosis, occlusion or dissection involving the bilateral carotid and vertebral arteries. Communications: Call Doctor Stroke Electronically signed by: Annika Bonilla MD 03/26/23 03:58 AM Discharge Plan Visit Data Chief Complaint: Stroke Alert Stated Complaint: VOMITING ED Provider: Jazmin Hernandez Discharge Problem: Acute hyponatremia, Polydipsia, Acute alteration in mental status, Status post ablation operation for arrhythmia, Chronic anticoagulation Forms Stand Alone Forms: [employer] Prescriptions Prescriptions: No Action atorvastatin 20 mg tablet See Rx Instructions .ROUTE .COMPLEX Qty: 90 3RF Dose Instruction: TAKE 1 TABLET AT BEDTIME Rx Instructions: TAKE 1 TABLET AT BEDTIME metronidazole 0.75 % cream 1 applic topical BID Qty: 45 0RF Rx Instructions: Apply to areas of the face twice daily as directed. metoprolol tartrate 25 mg tablet 25 mg PO BID PRN (Reason: atrial fibrillation) Qty: 180 3RF Eliquis 5 mg tablet 5 mg PO BID Qty: 180 3RF tadalafil 5 mg tablet 5 mg PO DAILY Qty: 15 8RF ketoconazole 2 % shampoo 1 applic topical .COMPLEX Qty: 120 2RF Rx Instructions: Wash scalp 2-3 times weekly. Let sit for 3-5 minutes prior to rinsing.; tamsulosin 0.4 mg capsule 0.4 mg PO HS Qty: 90 3RF finasteride 5 mg tablet 5 mg PO DAILY Qty: 90 3RF ketoconazole 2 % cream 1 applic topical DAILY Qty: 30 1RF albuterol sulfate 90 mcg/actuation HFA aerosol inhaler 2 puff INHALATION Q6H PRN (Reason: Shortness Of Breath Or Wheezing) Qty: 8.5 11RF Referrals Referrals: Erik Braun MD [Primary Care Provider] -
[2023-03-26] MEDS ORDERED: SODIUM CHLORIDE 0.9% 1,000 ML IV SCH (04:45)
[2023-03-26] MEDS ORDERED: SODIUM CHLORIDE 3 % 50 ML IV ONE (05:12)
[2023-03-26] MEDS ORDERED: STAT IV STA ×2 (05:12→16:45)
[2023-03-26] MEDS ORDERED: FUROSEMIDE INJ 20 MG/2 ML VIAL IV ONE ×2 (05:12→16:56)
--- NOTE | 2023-03-26 05:54 | History & Physical Report ---
Date of Service March 26, 2023 Assessment & Plan (1) Acute hyponatremia: Plan: Patient is a 72-year-old male with a past medical history of atrial fibrillation status post ablation on 03/24/2023 at [facility], asthma, hyperlipidemia, and BPH who presents to the hospital for evaluation of altered mental status. Patient found to be in acute hyponatremia with normal labs shown 2 days ago. -Admit to telemetry, telemetry indication being severe hyponatremia -Secondary to primary polydipsia and what seems to be postoperative oliguria -Given 50 mL of hypertonic saline and 20 mg of IV Lasix -BMP every 4 hours with a goal correction of 6-8 mmol/l correction and first hour -N.p.o. for now until confusion improves and then recommend fluid restriction until resolution of hyponatremia -Bladder scan as needed, straight cath as needed -Condom catheter in place for accurate I's and O's -Difficulty with getting Acevedo catheter in at [place], but patient voided in our ED, so will hold off for now (2) Difficulty in voiding: Plan: - Seems to be directly related to recent ablation requiring sedation -Plan as above (3) Primary polydipsia: Plan: - See above (4) Hypomagnesemia: Plan: - Likely delusional secondary to primary polydipsia -2 g of magnesium ordered in the ED, continue (5) Elevated troponin: Plan: - Secondary to recent ablation, no need to trend. -Patient able to tell me he does not have any chest pain at this time (6) AF (paroxysmal atrial fibrillation): Plan: - Status post ablation on 03/24/2023 at [facility] -Continue anticoagulation with Eliquis 5 mg twice daily (7) BPH with obstruction/lower urinary tract symptoms: Plan: - Continue Flomax, finasteride (8) Asthma: Plan: - Continue albuterol as needed Plan Disposition: Admit to telemetry DVT prophylaxis: Eliquis Diet: N.p.o. until confusion improves CODE STATUS: Full code as discussed with patient's as patient does not have decision-making capability at this time History of Present Illness Chief Complaint: AMS Primary Care Provider: Erik Braun MD Patient is a 72-year-old male with a past medical history of atrial fibrillation status post ablation on 03/24/2023 at [facility], asthma, hyperlipidemia, and BPH who presents to the hospital for evaluation of altered mental status. Patient recently had an ablation on for paroxysmal atrial fibrillation. The patient is somewhat confused and not able to clearly answer questions so the majority of the HPI is gathered from the patient's . Since the ablation it seems the patient has not been able to urinate as much as he thinks he should. He came to the emergency department earlier today for this reason. Be a bladder scan that showed that there was little urine in the bladder with a normal residual volume. For the past 24 hours, the patient has consumed copious amounts of water and even while he was in the emergency department earlier today he had 4 of the hospital water containers full of water. Prior to that though, the patient was consuming a lot of water at home as well to try and urinate more. states that he has had some episodes of nausea today as well as the confusion. No seizure activity, no headaches, no weakness. No history of previous stroke. No other complaints at this time. ED course: Patient evaluated by provider. Due to the patient's altered mental status, a stroke alert was called. CTA of the head and neck was negative for large vessel occlusion. Labs were significant for Hemoglobin of 11.5, INR 1.2, sodium of 115, chloride of 89, calcium of 7.6, magnesium of 1.6, bilirubin of 1.7, troponin of 438.2. Patient was started on normal saline and given magnesium. The hospitalist service was consulted for treatment of hyponatremia. Allergies Allergy/AdvReac Type Severity Reaction Status Date / Time hazelnut Allergy Unknown Swelling Verified 03/23/23 09:30 of Lip/Tongue/Throat kiwi Allergy Unknown Swelling Verified 03/23/23 09:30 of Lip/Tongue/Throat Penicillins AdvReac Mild UNKNOWN Verified 03/23/23 09:30 Home Medications Medication Instructions Recorded Confirmed Type ketoconazole 2 % shampoo 1 applic topical .COMPLEX #120 mL 11/17/21 03/26/23 Rx finasteride 5 mg tablet 5 mg PO DAILY #90 tabs 09/08/22 03/26/23 Rx tamsulosin 0.4 mg capsule 0.4 mg PO HS #90 caps 09/08/22 03/26/23 Rx albuterol sulfate 90 mcg/actuation 2 puff inhalation Q6H PRN 10/29/22 03/26/23 Rx aerosol inhaler Shortness Of Breath Or Wheezing #8.5 grams metronidazole 0.75 % topical cream 1 applic topical BID #45 grams 12/31/22 03/26/23 Rx metoprolol tartrate 25 mg tablet 25 mg PO BID PRN atrial 01/31/23 03/26/23 Rx fibrillation #180 tabs apixaban 5 mg tablet (Eliquis) 5 mg PO BID #180 tabs 03/14/23 03/26/23 Rx ketoconazole 2 % topical cream 1 applic topical DAILY #30 grams 03/23/23 03/26/23 Rx Acid Reflux 1 cap PO DIRECTED 03/26/23 03/26/23 History atorvastatin 20 mg tablet 20 mg PO HS 03/26/23 03/26/23 History Past Med/Surg History Medical History Asthma rare use of inhaler Atrial flutter Status post catheter based therapy 2017 BPH with obstruction/lower urinary tract symptoms History of colon polyps History of COVID-19 10/2021- fever, paxlovid, resolved Hyperlipidemia Internal hemorrhoids Paroxysmal atrial fibrillation (12/29/22) recent episode from 12/18-12/24; now resolved, no longer taking metoprolol at this time recent episode started 10/22/22- started metoprolol, messaged Dr Paris thru [place] portal, will see him 10/29/22-- states Dr Paris does not feel colonoscopy needs to be rescheduled due to recent a fib issues Patent foramen ovale Rosacea Sensorineural hearing loss (SNHL) of both ears Surgical History History of cardiac radiofrequency ablation 2018- [facility] History of colonoscopy (~2022) Family History Father Myocardial infarction Mother Leukemia Other Hypertension Denies family history of Crohn's disease Colorectal cancer Ulcerative colitis Social History Smoking Status: Never smoker Second Hand Exposure: No; Do You Dip or Chew Tobacco: No; Tobacco Cessation Education Requested by Patient: No Hx Alcohol Use: Yes Alcohol type: wine Hx Substance Use: No Preferred Language: [place] Communication Ability: Effective Category Specialist Required: No Beliefs That Will Affect Care: None Current Living Situation: Spouse Feels Safe at Home: Yes Safety Concerns: Feels Safe At This Time Assistive Devices: Glasses Review of Systems Review of Systems: Unobtainable due to cognitive status Physical Exam Constitutional: well developed, well nourished and cooperative Eyes: + anicteric sclerae Neck: trachea midline, no thyromegaly Respiratory: normal respiratory effort, lungs clear to auscultation Cardiovascular: Rate/Rhythm: regular rate and regular rhythm Heart Sounds: no murmur Vessels: no JVD Extremities: no edema Gastrointestinal (Abdomen): normal bowel sounds, soft, nontender, no hepatosplenomegaly Musculoskeletal: Head/Neck/Chest: normocephalic and head atraumatic Skin: no rashes, warm and dry Neurologic: moves all extremities, awake and + confused Psychiatric: Orientation: alert, oriented to person and oriented to place Eye Contact: + fair eye contact Results & Data Results & Data Vital Signs (Past 12 Hours) Vital Signs Temp Pulse Pulse Resp BP BP Pulse Ox 03/26/23 04:00 75 16 126/84 94 03/26/23 03:26 82 03/26/23 03:04 36.4 C L 67 20 141/70 H 94 O2 Del Method 03/26/23 04:00 Room Air 03/26/23 03:26 03/26/23 03:04 Room Air Supervising Physician Co-Signing Physician Notes Attending addendum: I have physically seen this patient, have supervised the medical residents activities, and agree with the H&P unless as otherwise noted. Assessment and Plan: Acute hyponatremia- Sodium 115 The patient will be admitted to telemetry for cardiac rhythm monitoring Secondary to primary polydipsia Give a single dose of Lasix 20 mg IV, hypertonic saline 50 mils, and fluid restriction 1200 cc Recheck laboratories in a.m. Hypomagnesemia- Magnesium 1.6 on admission Replace IV, recheck laboratories in a.m. Elevated troponin- Secondary to recent cardiac [place] [facility] [place] Continue Eliquis 5 mg p.o. twice daily
--- NOTE | 2023-03-26 06:35 | XRay Report ---
XR chest 1V portable CLINICAL HISTORY: neuro deficit, acute stroke suspected COMPARISON STUDY: Chest radiograph September 15, 2018. FINDINGS: There is no pneumothorax or pleural effusion. Lung volumes are mildly diminished consolidat ion is noted. There is prominence of the pulmonary vasculature. Cardiac mediastinal silhouette is sta ble. IMPRESSION: Prominence of the pulmonary vasculature. This is likely due to a hypoventilatory study. Pulmonary vascular congestion could appear similar. No overt pulmonary edema. ACT 112: Negative or not required by law. Electronically signed by: Hunter Rodrigues M.D. 03/26/2023 6:33 AM
[2023-03-26 07:19] LABS: iSTAT Creatinine 0.6 mg/dl (0.6-1.3); iSTAT Hemoglobin 12.6 g/dl (14.0-18.0); iSTAT Ionized Calcium 0.93 mmol/l (1.12-1.32); iSTAT Potassium 3.8 mmol/L (3.3-5.0)
[2023-03-26 08:13] LABS: BUN Creatinine Ratio 15.9 (10-20); Calcium 7.6 mg/dl (8.6-10.3); Est GFR (African American) 109.2 ml/min; Est GFR (Non-African American) 94.2 ml/min
[2023-03-26] MEDS ORDERED: ALBUTEROL HFA 8 GM INHALER INH PRN (09:19)
[2023-03-26] MEDS: APIXABAN 5 MG TABLET PO SCH ×2 (10:25→20:29)
[2023-03-26] MEDS: FINASTERIDE 5 MG TAB PO SCH (10:25)
--- NOTE | 2023-03-26 10:48 | Hospitalist Progress Note ---
Date of Service March 26, 2023 Assessment & Plan (1) Acute hyponatremia: (2) Primary polydipsia: (3) Hypomagnesemia: (4) AF (paroxysmal atrial fibrillation): (5) BPH with obstruction/lower urinary tract symptoms: (6) Asthma: Plan Patient is a 72-year-old male with a past medical history of atrial fibrillation status post ablation on 03/24/2023 at [facility], asthma, hyperlipidemia, and BPH who presents to the hospital for evaluation of altered mental status. Patient found to be in acute hyponatremia with normal labs shown 2 days ago. #Hyponatremia: - Likely secondary to polydipsia, question whether patient was truly oliguric - renal or lower urinary tract involvement is unlikely given normal bladder scans and normal creatinine. - BMP Q4H with target correction rate of 12 mmol/L over 24 hours - if correction rate begins to plateau, will consider bolus of hypertonic saline vs lasix - Continue fluid restriction: 1500mL - Condom catheter in place for accurate I's and O's #Primary Polydipsia: - see above #BPH: - Continue Flomax, finasteride #Hypomagnesemia: - Likely dilutional, mag repleted - Recheck AM Mag #Afib: - Status post ablation on 03/24/2023 - Continue anticoagulation with Eliquis 5 mg twice daily #Asthma: - Continue albuterol as needed Disposition: Telemetry DVT prophylaxis: Eliquis Diet: Heart healthy, 1500mL fluid restriction CODE STATUS: Full code as discussed with patient's as patient does not have decision-making capability at this time Admission and Anticipated Discharge Date Admission Date: March 26, 2023 Supervising Physician Co-Signing Physician Notes I personally examined the patient and verified all davison points of history and exam, discussed case, and agree with decision making with Dr Morris Seen in follow-up from early a.m. admission. Feeling okay. Seems to be voiding better. Hyponatremia was initially improving, then down trendedgiven his probably polydipsia and mechanism, additional Lasix given preferential to additional sodium to try to mobilize water. Discussed that his low urine output might of just been symptomatic given that he is not having any overt urinary retention, and does not have renal failurecontinue to follow. Subjective Patient is a 72-year-old male with a past medical history of atrial fibrillation status post ablation on 03/24/2023, asthma, hyperlipidemia, and BPH who presents to the hospital for evaluation of altered mental status. Patient found to be in acute hyponatremia with normal labs shown 2 days ago, patient endorses recent polydipsia due to concern of reduced urine output. Pt evaluated at bedside this morning, is alert and oriented but has some difficulty recounting certain aspects of history. Overall states that he feels much more lucid compared to time of presentation. Notes that he feels his urine output has started to increase. Review of Systems Review of Systems: All systems reviewed & are unremarkable except as noted in HPI & below Physical Exam Constitutional: WD/WN, vitals as above Respiratory: normal respiratory effort, lungs clear to auscultation Cardiovascular: RRR, no murmur, no edema Gastrointestinal (Abdomen): normal bowel sounds, soft, nontender, no hepatosplenomegaly Skin: no rashes, warm and dry Neurologic: AOx4, no focal neuro deficits appreciated Results & Data Results & Data Vital Signs (Past 12 Hours) Vital Signs Temp Pulse Pulse Resp BP BP Pulse Ox 03/26/23 09:20 37.3 C 74 18 142/72 H 98 03/26/23 08:31 60 20 130/68 94 03/26/23 06:18 61 19 128/80 95 03/26/23 04:00 75 16 126/84 94 03/26/23 03:26 82 03/26/23 03:04 36.4 C L 67 20 141/70 H 94 O2 Del Method 03/26/23 09:20 Room Air 03/26/23 08:31 Room Air 03/26/23 06:18 Room Air 03/26/23 04:00 Room Air 03/26/23 03:26 03/26/23 03:04 Room Air Laboratory Results Abnormal lab results 03/26/23 03/26/23 03/26/23 Range/Units 03:27 03:31 03:38 RBC 3.66 L (4.70-6.10) M/uL Hgb 11.5 L (14.0-18.0) g/dl POC Hgb 12.6 L (14.0-18.0) g/dl Hct 32.2 L (42.0-52.0) % POC Hct 37 L (42-52) % Plt Count 103 L (130-400) K/uL Lymph # (Auto) 0.77 L (1.20-3.40) K/uL Reagan # (Auto) 0.71 H (0.11-0.59) K/uL PT (9.0-12.0) Seconds INR (0.9-1.1) APTT (21.0-31.0) Seconds POC Sodium 121 L (135-144) mmol/L Sodium (136-145) mmol/L POC Chloride 90 L (101-112) mmol/L Chloride (98-107) mmol/L Carbon Dioxide (21-32) mmol/L POC Total CO2 18 L (24-31) mmol/L Glucose (70-99(Fasting)) mg/dl POC Glucose 120 H (70-99) mg/dl POC Glucose (other) 119 H (70-99) mg/dl Calcium (8.6-10.3) mg/dl POC Ioniz Calcium Joel 0.93 L (1.12-1.32) mmol/l Magnesium (1.7-2.4) mg/dl Total Bilirubin (0.2-1.0) mg/dl Troponin I High Sens (0-20) pg/ml Globulin (2.5-4.0) gm/dl 03/26/23 03/26/23 03/26/23 Range/Units 03:38 03:38 07:13 RBC (4.70-6.10) M/uL Hgb (14.0-18.0) g/dl POC Hgb (14.0-18.0) g/dl Hct (42.0-52.0) % POC Hct (42-52) % Plt Count (130-400) K/uL Lymph # (Auto) (1.20-3.40) K/uL Reagan # (Auto) (0.11-0.59) K/uL PT 12.5 H (9.0-12.0) Seconds INR 1.2 H (0.9-1.1) APTT 32.2 H (21.0-31.0) Seconds POC Sodium (135-144) mmol/L Sodium 115 L* (136-145) mmol/L POC Chloride (101-112) mmol/L Chloride 89 L (98-107) mmol/L Carbon Dioxide 20 L (21-32) mmol/L POC Total CO2 (24-31) mmol/L Glucose 123 H (70-99(Fasting)) mg/dl POC Glucose (70-99) mg/dl POC Glucose (other) (70-99) mg/dl Calcium 7.6 L (8.6-10.3) mg/dl POC Ioniz Calcium Joel (1.12-1.32) mmol/l Magnesium 1.6 L (1.7-2.4) mg/dl Total Bilirubin 1.7 H (0.2-1.0) mg/dl Troponin I High Sens 438.2 H* 463.4 H* (0-20) pg/ml Globulin 2.2 L (2.5-4.0) gm/dl 03/26/23 Range/Units 07:13 RBC (4.70-6.10) M/uL Hgb (14.0-18.0) g/dl POC Hgb (14.0-18.0) g/dl Hct (42.0-52.0) % POC Hct (42-52) % Plt Count (130-400) K/uL Lymph # (Auto) (1.20-3.40) K/uL Reagan # (Auto) (0.11-0.59) K/uL PT (9.0-12.0) Seconds INR (0.9-1.1) APTT (21.0-31.0) Seconds POC Sodium (135-144) mmol/L Sodium 118 L* (136-145) mmol/L POC Chloride (101-112) mmol/L Chloride 88 L (98-107) mmol/L Carbon Dioxide (21-32) mmol/L POC Total CO2 (24-31) mmol/L Glucose 118 H (70-99(Fasting)) mg/dl POC Glucose (70-99) mg/dl POC Glucose (other) (70-99) mg/dl Calcium 7.6 L (8.6-10.3) mg/dl POC Ioniz Calcium Joel (1.12-1.32) mmol/l Magnesium (1.7-2.4) mg/dl Total Bilirubin (0.2-1.0) mg/dl Troponin I High Sens (0-20) pg/ml Globulin (2.5-4.0) gm/dl Resident Activity Tracking Resident Involvement: Resident Care Provided Care Provided: Adult Hospital Medicine
[2023-03-26 11:48] LABS: BUN Creatinine Ratio 15.5 (10-20); Calcium 7.3 mg/dl (8.6-10.3); Creatinine Clr Calc Pharmacy 109.9 ml/min; Est GFR (African American) 107.9 ml/min; Est GFR (Non-African American) 93.1 ml/min; Potassium 3.8 mmol/L (3.5-5.1)
[2023-03-26] MEDS ORDERED: MAG SULFATE 50% 1GM/2ML VIAL IV ONE (15:50)
[2023-03-26] MEDS ORDERED: MAGNESIUM SULFATE / D5W 1 GM/100 ML BAG IV ONE (16:00)
[2023-03-26 16:44] LABS: BUN Creatinine Ratio 15.5 (10-20); Calcium 7.7 mg/dl (8.6-10.3); Creatinine Clr Calc Pharmacy 109.9 ml/min; Est GFR (African American) 107.9 ml/min; Est GFR (Non-African American) 93.1 ml/min; Potassium 3.8 mmol/L (3.5-5.1)
[2023-03-26] MEDS ORDERED: SODIUM CHLORIDE 3 % 100 ML IV ONE (16:45)
[2023-03-26 20:34] LABS: BUN Creatinine Ratio 16.4 (10-20); Calcium 7.7 mg/dl (8.6-10.3); Creatinine Clr Calc Pharmacy 116.4 ml/min; Est GFR (African American) 110.5 ml/min; Est GFR (Non-African American) 95.3 ml/min; Potassium 3.7 mmol/L (3.5-5.1)
[2023-03-26] MEDS ORDERED: TAMSULOSIN HCL 0.4 MG CAP PO SCH (21:00)
[2023-03-26] MEDS ORDERED: ATORVASTATIN 20 MG TAB PO SCH (21:00)
--- NOTE | 2023-03-26 21:21 | Billing Data ---
Date of Service March 26, 2023 Coding Level of Care Code 78583 INT INP/OBS CARE
[2023-03-26] MEDS: PANTOprazole 40 MG TAB PO SCH (21:36)
[2023-03-26] MEDS: METOPROLOL TARTRATE 25 MG TAB PO SCH (21:36)
[2023-03-26 22:06] LABS: BUN Creatinine Ratio 14.9 (10-20); Calcium 7.6 mg/dl (8.6-10.3); Creatinine Clr Calc Pharmacy 105.4 ml/min; Est GFR (African American) 106.1 ml/min; Est GFR (Non-African American) 91.5 ml/min; Potassium 3.6 mmol/L (3.5-5.1)
--- NOTE | 2023-03-26 22:58 | Electrocardiogram Report ---
Test Reason : Blood Pressure : / mmHG Vent. Rate : 075 BPM Atrial Rate : 075 BPM P-R Int : 186 ms QRS Dur : 086 ms QT Int : 402 ms P-R-T Axes : 047 073 053 degrees QTc Int : 448 ms Normal sinus rhythm Nonspecific T wave abnormality When compared with ECG of 15-SEP-2018 06:50, Premature ventricular complexes are no longer Present T wave inversion less evident in Inferolateral leads Confirmed by Ravi Espinosa ([id number]) on 03/26/2023 10:57:37 PM Referred By: REFERRED SELF Confirmed By:Ravi Espinosa
[2023-03-27 02:10] LABS: BUN Creatinine Ratio 14.5 (10-20); Calcium 7.6 mg/dl (8.6-10.3); Creatinine Clr Calc Pharmacy 102.6 ml/min; Est GFR (African American) 104.9 ml/min; Est GFR (Non-African American) 90.5 ml/min; Potassium 3.6 mmol/L (3.5-5.1)
[2023-03-27 06:03] LABS: Basophils # (auto) 0.01 K/uL (0.00-0.20); Basophils % (auto) 0.2 %; Eosinophils # (auto) 0.07 K/uL (0.00-0.50); Eosinophils % (auto) 1.2 %; Hematocrit (blood only) 33.8 % (42.0-52.0); Hemoglobin 12.1 g/dl (14.0-18.0); Immature Granulocytes # (auto) 0.02 K/uL (0.01-0.20); Immature Granulocytes % (auto) 0.3 %; Lymphocytes # (auto) 0.69 K/uL (1.20-3.40); Lymphocytes % (auto) 11.9 %; Mean Corpuscular Hemoglobin 31.3 pg (25.0-34.0); Mean Corpuscular Hgb Conc 35.8 g/dL (32.0-36.0); Mean Corpuscular Volume 87.6 fL (80.0-100.0); Monocytes # (auto) 0.82 K/uL (0.11-0.59); Monocytes % (auto) 14.1 %; Neutrophils # (auto) 4.21 K/uL (1.40-6.50); Neutrophils % (auto) 72.3 %; Platelet Count 104 K/uL (130-400); RDW Standard Deviation 41.2 fL (36.4-46.3); Red Blood Count 3.86 M/uL (4.70-6.10); White Blood Count 5.82 K/ul (4.8-10.8)
[2023-03-27 06:18] LABS: BUN Creatinine Ratio 13.3 (10-20); Calcium 7.6 mg/dl (8.6-10.3); Creatinine Clr Calc Pharmacy 103.1 ml/min; Est GFR (African American) 105.5 ml/min; Potassium 3.8 mmol/L (3.5-5.1)
--- NOTE | 2023-03-27 08:02 | Hospitalist Progress Note ---
Date of Service March 27, 2023 Assessment & Plan (1) Acute hyponatremia: (2) Primary polydipsia: (3) Hypomagnesemia: (4) AF (paroxysmal atrial fibrillation): (5) BPH with obstruction/lower urinary tract symptoms: (6) Asthma: Plan Patient is a 72-year-old male with a past medical history of atrial fibrillation status post ablation on 03/24/2023 at [facility], asthma, hyperlipidemia, and BPH who presents to the hospital for evaluation of altered mental status. Patient found to be in acute hyponatremia with normal labs shown 2 days ago. #Hyponatremia: - Likely secondary to polydipsia, question whether patient was truly oliguric - renal or lower urinary tract involvement is unlikely given normal bladder scans and normal creatinine. - BMP Q4H with target correction rate of 12 mmol/L over 24 hours - if correction rate begins to plateau, will consider bolus of hypertonic saline vs lasix - Continue fluid restriction: 1500mL - Condom catheter in place for accurate I's and O's #Primary Polydipsia: - see above #BPH: - Continue Flomax, finasteride #Hypomagnesemia: - Likely dilutional, mag repleted - Recheck AM Mag #Afib: - Status post ablation on 03/24/2023 - Continue anticoagulation with Eliquis 5 mg twice daily #Asthma: - Continue albuterol as needed Disposition: Telemetry DVT prophylaxis: Eliquis Diet: Heart healthy, 1500mL fluid restriction CODE STATUS: Full code as discussed with patient's as patient does not have decision-making capability at this time Admission and Anticipated Discharge Date Admission Date: March 26, 2023 Subjective Patient is a 72-year-old male with a past medical history of atrial fibrillation status post ablation on 03/24/2023, asthma, hyperlipidemia, and BPH who presents to the hospital for evaluation of altered mental status. Patient found to be in acute hyponatremia with normal labs shown 2 days ago, patient endorses recent polydipsia due to concern of reduced urine output. Pt evaluated at bedside this morning, is alert and oriented but has some difficulty recounting certain aspects of history. Overall states that he feels much more lucid compared to time of presentation. Notes that he feels his urine output has started to increase. Results & Data Results & Data Vital Signs (Past 12 Hours) Vital Signs Temp Pulse Pulse Resp BP Pulse Ox O2 Del Method 03/27/23 03:00 37.2 C 64 18 135/80 97 Room Air 03/26/23 23:31 54 L 03/26/23 23:00 37.1 C 65 14 133/83 95 Room Air
[2023-03-27] MEDS: PANTOprazole 40 MG TAB PO SCH (08:46)
[2023-03-27] MEDS: APIXABAN 5 MG TABLET PO SCH (08:46)
[2023-03-27] MEDS: FINASTERIDE 5 MG TAB PO SCH (08:46)
[2023-03-27] MEDS: METOPROLOL TARTRATE 25 MG TAB PO SCH (08:47)
[2023-03-27 09:47] LABS: BUN Creatinine Ratio 11.8 (10-20); Calcium 7.7 mg/dl (8.6-10.3); Creatinine Clr Calc Pharmacy 101.7 ml/min; Est GFR (African American) 104.9 ml/min; Est GFR (Non-African American) 90.5 ml/min; Potassium 3.7 mmol/L (3.5-5.1)
[2023-03-27 13:22] LABS: BUN Creatinine Ratio 11.3 (10-20); Calcium 8.2 mg/dl (8.6-10.3); Creatinine Clr Calc Pharmacy 96.7 ml/min; Est GFR (African American) 102.7 ml/min; Est GFR (Non-African American) 88.6 ml/min; Potassium 3.7 mmol/L (3.5-5.1)
--- NOTE | 2023-03-27 17:09 | Discharge Summary ---
Date of Service March 27, 2023 Admission HPI Per Admitting Provider Patient is a 72-year-old male with a past medical history of atrial fibrillation status post ablation on 03/24/2023 at [facility], asthma, hyperlipidemia, and BPH who presents to the hospital for evaluation of altered mental status. Patient recently had an ablation on for paroxysmal atrial fibrillation. The patient is somewhat confused and not able to clearly answer questions so the majority of the HPI is gathered from the patient's . Since the ablation it seems the patient has not been able to urinate as much as he thinks he should. He came to the emergency department earlier today for this reason. Be a bladder scan that showed that there was little urine in the bladder with a normal residual volume. For the past 24 hours, the patient has consumed copious amounts of water and even while he was in the emergency department earlier today he had 4 of the hospital water containers full of water. Prior to that though, the patient was consuming a lot of water at home as well to try and urinate more. states that he has had some episodes of nausea today as well as the confusion. No seizure activity, no headaches, no weakness. No history of previous stroke. No other complaints at this time. ED course: Patient evaluated by provider. Due to the patient's altered mental status, a stroke alert was called. CTA of the head and neck was negative for large vessel occlusion. Labs were significant for Hemoglobin of 11.5, INR 1.2, sodium of 115, chloride of 89, calcium of 7.6, magnesium of 1.6, bilirubin of 1.7, troponin of 438.2. Patient was started on normal saline and given magnesium. The hospitalist service was consulted for treatment of hyponatremia. Admission Exam Per Admitting Provider Constitutional: well developed, well nourished and cooperative Eyes: + anicteric sclerae Neck: trachea midline, no thyromegaly Respiratory: normal respiratory effort, lungs clear to auscultation Cardiovascular: Rate/Rhythm: regular rate and regular rhythm Heart Sounds: no murmur Vessels: no JVD Extremities: no edema Gastrointestinal (Abdomen): normal bowel sounds, soft, nontender, no hepatosplenomegaly Musculoskeletal: Head/Neck/Chest: normocephalic and head atraumatic Skin: no rashes, warm and dry Neurologic: moves all extremities, awake and + confused Psychiatric: Orientation: alert, oriented to person and oriented to place Eye Contact: + fair eye contact Principal Diagnosis AMS, Hyponatremia Discharge Exam Constitutional WD/WN, vitals as above Respiratory normal respiratory effort, lungs clear to auscultation Cardiovascular RRR, no murmur, no edema Gastrointestinal (Abdomen) normal bowel sounds, soft, nontender, no hepatosplenomegaly Musculoskeletal Strength and tone intact Skin no rashes, warm and dry Neurologic No focal neurological deficits appreciated Psychiatric A+Ox3, euthymic affect Discharge Data Allergies Allergy/AdvReac Type Severity Reaction Status Date / Time hazelnut Allergy Unknown Swelling Verified 03/23/23 09:30 of Lip/Tongue/Throat kiwi Allergy Unknown Swelling Verified 03/23/23 09:30 of Lip/Tongue/Throat Penicillins AdvReac Mild UNKNOWN Verified 03/23/23 09:30 Consultations 03/26/23 04:34 ED Decision to Admit Stat Ordered Studies 03/26/23 03:10 CT angio head w con Stat CT angio neck with con Stat CT head/brain wo con Stat Hospital Course (1) Acute hyponatremia: (2) Primary polydipsia: (3) Hypomagnesemia: (4) AF (paroxysmal atrial fibrillation): (5) BPH with obstruction/lower urinary tract symptoms: (6) Asthma: Plan Patient is a 72-year-old male with a past medical history of atrial fibrillation status post ablation on 03/24/2023, asthma, hyperlipidemia, and BPH who presented to the hospital for evaluation of altered mental status. Patient was found to be in acute hyponatremia with normal labs shown 2 days prior to admission. #Hyponatremia: - Based on patient history, cause of hyponatremia presumed to be secondary to polydipsia -Patient placed on fluid restriction of 1500mL and monitored with serial BMP Q4H - Patient was given doses of lasix and hypertonic saline early on to augment correction rate - Patient discharged with recommendation to follow up with PCP, patient also to get repeat BMP in the ambulatory setting tomorrow #Primary Polydipsia: - see above Total Time Total Time Spent Total Time Spent (In Minutes): <30 Discharge Plan Discharge Items Patient Disposition: Home - Self-Care Reason For Visit: AMS Discharge Diagnosis: AMS, hyponatremia Activity: Resume your previous activity Non-emergency contact: Primary Care Provider Call non-emergency contact if: you have any medication questions and your symptoms worsen Follow-up/Referrals: Solic,Gavin., MD [Primary Care Provider] - Diet: Regular Ambulatory Orders: Basic Metabolic Panel (Routine) Timeframe: 1 Day Location: Determined by Patient Ordered By: Kleber Lozano Attending Provider Instructions: You were admitted to the hospital for altered mental status found to be caused by hyponatremia. You were treated with fluid restriction and were also given small amounts of medication to help remove excess water and boost your sodium level. A discharge summary will be sent to your primary care physician to ensure continuity of care. Please bring this discharge summary with you to your next office appointment so that your provider can review it at that time. Medications: Your medication list has been reviewed and reconciled upon discharge to ensure accuracy and continuity of care. An updated list of all your medications is included with your hospital discharge paperwork. Please review this list closely and make note of any changes to your medications. No medication changes were made during your hospitalization, continue to take your home medications as directed. Follow up appointments: - Make a follow up appointment with your PCP within the next week. It is very important that you follow up with them shortly after discharge from the hospital. - It is also important that you have your labs checked, ideally the day after discharge. This is to ensure that your sodium continues to trend in the right direction. - Keep all of your follow up appointments as already scheduled. If you cannot make an appointment, notify your provider. CONTACT YOUR PRIMARY CARE PROVIDER if you experience any of the following: - Difficulty following your treatment plan - Difficulty taking any of your medications CALL 911 OR GO TO THE EMERGENCY DEPARTMENT if you experience any of the following: - Sudden onset confusion or alteration in mental status - Sudden, severe abdominal pain or nausea/vomiting - Severe chest pain or chest pain that radiates to your jaw or arm - Sudden, severe shortness of breath or difficulty breathing Pending Studies at Discharge: No Stand-Alone Forms: [employer], Smoking Cessation Medications and DC Order Prescriptions: Continued metronidazole 0.75 % cream 1 applic topical BID Qty: 45 0RF Rx Instructions: Apply to areas of the face twice daily as directed. metoprolol tartrate 25 mg tablet 25 mg PO BID PRN (Reason: atrial fibrillation) Qty: 180 3RF Eliquis 5 mg tablet 5 mg PO BID Qty: 180 3RF Patient Comments: usually takes 730 am and 730 pm ketoconazole 2 % shampoo 1 applic topical .COMPLEX Qty: 120 2RF Rx Instructions: Wash scalp 2-3 times weekly. Let sit for 3-5 minutes prior to rinsing.; tamsulosin 0.4 mg capsule 0.4 mg PO HS Qty: 90 3RF finasteride 5 mg tablet 5 mg PO DAILY Qty: 90 3RF ketoconazole 2 % cream 1 applic topical DAILY Qty: 30 1RF albuterol sulfate 90 mcg/actuation HFA aerosol inhaler 2 puff INHALATION Q6H PRN (Reason: Shortness Of Breath Or Wheezing) Qty: 8.5 11RF Acid Reflux 1 cap PO DIRECTED Patient Comments: Per pt he was giving a medication for throat discomfort by [place] but couldn't remember the name, dose, or freq of the medication; it doesn't show up in the fill history. His has the list of his medications. atorvastatin 20 mg tablet 20 mg PO HS Discharge Orders: Discharge Order (Routine); Ordered 03/27/23 Ordered By: Kleber Renteria/Other Patient Handouts: Hyponatremia Dc Admission Data Admit Date/Time: 03/26/23 05:25 Attending Provider: Shemar Rodriguez Admit Provider: Anthony Moreno Primary Care Provider: Erik Braun Other Providers: Jordan Medeiros Other Interventions: Discharge Summary Assessment (RN) Last Done: 03/27/23 14:22 Supervising Physician Co-Signing Physician Notes I personally examined the patient and verified all davison points of history and exam, discussed case, and agree with decision making with Dr Morris feels good. Voiding okay. No new complaints. Discussed labs and progress. He expressed good understanding, he/ asked good questions that I answered to the best my ability and to their satisfaction. Vitals noted, in general he is awake and alert pleasant no distress. HEENT normocephalic atraumatic mucous membranes moist. Breathing unlabored no accessory muscle use good effort. Skin shows no rashes no pallor or icterus. Neuro without focal deficits. Labs noted. Acute polydipsia mediated hyponatremianow improving nicely. Has gotten within 10 points of normal, given the acute drop, given his clinical stability, it overall it appears quite safe to get him home. Basic metabolic panel tomorrowanticipate resolution. Otherwise as above.
--- NOTE | 2023-03-27 18:49 | Billing Data ---
Date of Service March 27, 2023 Coding Level of Care Code 11379 IN/OBS DISCH 30 MIN/LESS
== END 2023-03-27 15:17 | disposition home or self-care (01) ==
LOC: ED 02:58 → INTOOBSV 05:25 → SUATTDRO 05:25 → 4W 05:25

== ENCOUNTER 2024-01-06 17:10 | Observation (INO) ==
[2024-01-06 17:55] LABS: Basophils # (auto) 0.01 K/uL (0.00-0.20); Basophils % (auto) 0.2 %; Eosinophils # (auto) 0.04 K/uL (0.00-0.50); Eosinophils % (auto) 0.9 %; Hematocrit (blood only) 39.7 % (42.0-52.0); Hemoglobin 13.9 g/dl (14.0-18.0); Immature Granulocytes # (auto) 0.02 K/uL (0.01-0.20); Immature Granulocytes % (auto) 0.5 %; Lymphocytes # (auto) 0.53 K/uL (1.20-3.40); Mean Corpuscular Hemoglobin 31.4 pg (25.0-34.0); Mean Corpuscular Volume 89.8 fL (80.0-100.0); Monocytes # (auto) 0.65 K/uL (0.11-0.59); Monocytes % (auto) 14.7 %; Neutrophils # (auto) 3.17 K/uL (1.40-6.50); Neutrophils % (auto) 71.7 %; Platelet Count 142 K/uL (130-400); RDW Coefficient of Variation 13.6 % (11.5-14.5); RDW Standard Deviation 44.8 fL (36.4-46.3); Red Blood Count 4.42 M/uL (4.70-6.10); White Blood Count 4.42 K/ul (4.8-10.8)
[2024-01-06 18:08] LABS: Albumin Globulin Ratio 1.6 (0.9-2); Albumin Level 4.2 gm/dl (3.4-5.0); BUN Creatinine Ratio 13.3 (10-20); Bilirubin,Total 1.4 mg/dl (0.2-1.0); Calcium 8.3 mg/dl (8.6-10.3); Creatinine Clr Calc Pharmacy 70.4 ml/min; Est GFR (African American) 87.7 ml/min; Est GFR (Non-African American) 75.6 ml/min; Globulin 2.6 gm/dl (2.5-4.0); Potassium 3.8 mmol/L (3.5-5.1); Total Protein 6.8 gm/dl (6.0-8.3)
--- NOTE | 2024-01-06 18:14 | XRay Report ---
SINGLE VIEW CHEST CLINICAL HISTORY: Fluid overload FINDINGS: A PA chest radiograph is compared to study dated 03/26/2023. The cardiomediastinal silhouett e is top normal for projection. The pulmonary vasculature is noncongested. The lungs and pleural spac es are clear. No pneumothorax is seen. The skeletal structures are osteopenic. The bony thorax is tung ssly intact. IMPRESSION: No active disease in the chest. ACT 112: Negative or not required by law. Electronically signed by: Renato Gonzales M.D. 01/06/2024 6:12 PM
[2024-01-06 18:16] LABS: INR 1.2 (0.9-1.1); Partial Thromboplastin Ratio 1.1; Partial Thromboplastin Time 29 Seconds (21-31); Prothrombin Time 12.4 Seconds (9.0-12.0)
[2024-01-06 18:38] LABS: Magnesium 1.7 mg/dl (1.7-2.4)
[2024-01-06 18:45] LABS: Troponin I High Sensitivity 5.4 pg/ml (0-20)
--- NOTE | 2024-01-06 19:51 | Emergency Department Note ---
Impression & Plan Acute hyponatremia, Gastroenteritis ED Provider Note CHIEF COMPLAINT: Water retention, trouble urinating HISTORY OF PRESENTING ILLNESS: This 73-year-old male patient presents to the emergency department for evaluation of water retention and difficulty urinating. The patient was seen in the ER last night and diagnosed with gastroenteritis. He states that he has not eaten or drank anything since discharge, but has gained 5 pounds since last night. He also has not been urinating very much. He denies any swelling to his extremities. He denies any chest pain or shortness of breath. The patient has a history of fluid retention after his ablation last year. He also has a history of hyponatremia and is worried that his poor oral intake is making his hyponatremia worse. He states that the last time he was not able to eat or drink well he had significant hyponatremia requiring admission and also has a history of SIADH. He has not had any vomiting or diarrhea today, but just doesn't feel good and hasn't been hungry at all. Denies abdominal pain. Denies chest pain or SOB. I reviewed the patient's ER visit from last night. The patient's sodium level was 135, but the remainder of the labs without significant abnormalities. He was given 1 L normal saline solution bolus and IV Zofran. Respiratory bio fire was negative. The patient had been able to drink clear liquids without difficulty prior to discharge. The patient's had a similar illness earlier in the week. The patient did gain 4 pounds from his ER visit yesterday. REVIEW OF SYSTEMS: See HPI for pertinent positives and pertinent negatives. ALLERGIES: Hazelnut, kiwi, PCN MEDICATIONS: See below PAST MEDICAL HISTORY: See below PHYSICAL EXAM: VITALS: Vitals are noted on the nurse's note and reviewed by myself. GENERAL: Non toxic, no acute distress, non-diaphoretic. SKIN: No erythema, edema, or warmth of the bilateral lower extremities or bilateral upper extremities. No pitting edema. Capillary refill <2 sec. EYES: PERRLA. EOMI. Conjunctivae without injection, sclerae without icterus. NOSE: Patent without discharge. MOUTH: Mucous membranes moist. Uvula midline. Airway patent. NECK: Supple without nuchal rigidity. HEART: Regular rate and rhythm without murmurs gallops or rubs. LUNGS: Clear to auscultation bilaterally without wheezes, rales or rhonchi. No retractions or accessory muscle use. ABDOMEN: Positive bowel sounds x 4. Normal tympanic percussion. Soft, nontender to palpation. No masses or organomegaly. No CVA tenderness. Quevedo sign negative. No guarding or rebound tenderness. No focal RLQ or LLQ tenderness. MUSCULOSKELETAL: No gross musculoskeletal defects. Bilateral lower extremities are nontender to palpation. See skin exam. Peripheral pulses 2+. NEURO: Patient was alert and oriented. No focal neurological deficits. DIFFERENTIAL DIAGNOSIS: Differential diagnosis includes gastroenteritis, food borne illness, infections, appendicitis, diverticulitis, inflammatory bowel disease, obstruction, GI bleed, biliary pathology, volvulus, as well as other pathologies. ED COURSE AND MEDICAL DECISION MAKING: HISTORY FROM INDEPENDENT HISTORIAN: Additional history was obtained from the patient's . MEDICATIONS GIVEN: None INTERPRETATION OF LABS: I interpreted the labs with full lab results as below in the lab section of this note. White blood cell count low at 4.42. Hemoglobin low at 13.9. Platelet count low at 142. INR 1.2 and PT 12.4. APTT 29. Sodium low at 129. Glucose 114, total bilirubin 1.4, but CMP otherwise without acute abnormalities. Magnesium normal. High-sensitivity troponin normal. BNP slightly elevated at 108. TSH normal. Urinalysis without significant abnormalities. INTERPRETATION OF IMAGING: Imaging studies were interpreted by myself and read by radiology as per the imaging section of this note. Chest x-ray negative for acute cardiopulmonary etiology. EXTERNAL RECORDS REVIEWED: I reviewed the patient's workup from yesterday as summarized above. CONSULTATIONS: On-call hospitalist MDM SUMMARY: The patient was seen during a time of extreme volume and extreme acuity. Nursing triage protocols were initiated with IV lock, labs, and/or imaging studies conducted by protocol in the triage area. The patient was examined by myself once they were taken back to an exam room. The patient was seen in the ER yesterday and diagnosed with a presumed gastroenteritis. The patient has been unable to eat or drink much at home because of his symptoms. He is no longer having vomiting and diarrhea, just does not feel like he can eat or drink because he has no appetite. He denies any abdominal pain and has no abdominal tenderness on exam. The patient has a history of significant hyponatremia when he is unable to eat and drink and became concerned. The patient's sodium has dropped from 135 down to 129. The remainder of the laboratory studies as above. The patient was not given any IV fluids in the ER since he had IV fluids yesterday and he has a history of SIADH. I had a meaningful discussion about this patient with Dr. Iraheta who agrees with my assessment and the treatment plan. We feel the patient requires admission for further evaluation and treatment due to his hyponatremia and poor oral intake at home. I spoke with the on-call hospitalist who agreed to admit the patient. Please refer to their dictation for further details. The patient's care was transferred in stable condition. DIAGNOSIS: Hyponatremia Gastroenteritis Attending Attestation: I Tigre Iraheta MD I have reviewed the advanced practitioner's documentation and agree with the plan of care. I accept the responsibility for the associated risk of managing the patient. I performed a substantive portion of the visit including involvement in all aspects of medical decision making. Past Med/Surg History Problem List (Updated 01/07/24 @ 02:16 by Annabelle Sibley PA-C) Acute hyponatremia (Acute) Gastroenteritis (Acute) Nausea vomiting and diarrhea (Acute) Atrial flutter (Acute) Mixed hyperlipidemia AF (paroxysmal atrial fibrillation) (Acute) Allergic rhinitis (Acute) Asthma (Acute) Tubular adenoma of colon (Acute) Hyperglycemia Erectile dysfunction Incomplete emptying of bladder Patent foramen ovale BPH with obstruction/lower urinary tract symptoms (Acute) Sensorineural hearing loss (SNHL) of both ears (Acute) Rosacea Medical History History of colon polyps Acute alteration in mental status Polydipsia Acute hyponatremia History of colon polyps History of COVID-19 Asthma Paroxysmal atrial fibrillation Rosacea Patent foramen ovale Sensorineural hearing loss (SNHL) of both ears Internal hemorrhoids BPH with obstruction/lower urinary tract symptoms Hyperlipidemia Atrial flutter Surgical History Status post ablation operation for arrhythmia History of cardiac radiofrequency ablation History of colonoscopy (~2022) Family History Father Myocardial infarction Mother Leukemia Other Hypertension Denies family history of Crohn's disease Colorectal cancer Ulcerative colitis Social History Smoking Status: Never smoker Second Hand Exposure: No; Do You Dip or Chew Tobacco: No; Hx Alcohol Use: No Hx Substance Use: No Preferred Language: Maltese Communication Ability: Effective 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 Beliefs That Will Affect Care: None Current Living Situation: Spouse Feels Safe at Home: Yes Assistive Devices: None Allergies Allergies Allergy/AdvReac Type Severity Reaction Status Date / Time hazelnut Allergy Unknown Swelling Verified 01/06/24 20:07 of Lip/Tongue/Throat kiwi Allergy Unknown Swelling Verified 01/06/24 20:07 of Lip/Tongue/Throat Penicillins AdvReac Mild UNKNOWN Verified 01/06/24 20:07 Home Meds Home Medications Medication Instructions Recorded Confirmed atorvastatin 20 mg tablet 20 mg PO HS 01/06/24 01/06/24 finasteride 5 mg tablet 5 mg PO HS 01/06/24 01/06/24 ketoconazole 2 % topical cream 1 applic topical DAILY PRN FLARE 01/06/24 01/06/24 metoprolol succinate 25 mg 12.5 mg PO HS 01/06/24 01/06/24 tablet,extended release 24 hr metronidazole 0.75 % topical cream 1 applic topical BID 01/06/24 01/06/24 Previous Rx's Medication Instructions Recorded ketoconazole 2 % shampoo 1 applic topical .COMPLEX #120 mL 11/17/21 albuterol sulfate 90 mcg/actuation 2 puff inhalation Q6H PRN 10/29/22 aerosol inhaler Shortness Of Breath Or Wheezing #8.5 grams apixaban 5 mg tablet (Eliquis) 5 mg PO BID #180 tabs 03/14/23 tamsulosin 0.4 mg capsule 0.4 mg PO HS #90 caps 07/28/23 sodium chloride 1,000 mg soluble 1,000 mg PO BID #14 tabs 01/07/24 tablet Results & Data (ED) Vital Signs Vital Signs - 24 hr 01/06/24 17:14 01/06/24 20:04 01/06/24 20:15 Temperature 36.7 C Temperature Source Temporal Artery Scan Pulse Rate 79 66 Pulse Rate [Apical] 68 Pulse Rhythm [Apical] Regular Pulse Strength [Apical] Normal Respiratory Rate 20 16 Respiratory Effort / Characteristics Non-Labored Non-Labored Spontaneous Respiratory Depth Normal Normal Respiratory Pattern Regular Blood Pressure 133/72 Blood Pressure [Right Arm] 125/73 Blood Pressure Mean 92 Blood Pressure Mean [Right Arm] 90 Blood Pressure Position [Right Arm] Sitting Pulse Oximetry 96 99 Oxygen Delivery Method Room Air Room Air Sepsis Recent Fever Within 48 Hours No Sepsis New/Unexplained Change in Mental Status No Sepsis Action Taken by Nursing No Action Required Laboratory Data 01/07/24 05:22 01/07/24 05:24 Lab Results 01/06/24 01/06/24 01/06/24 Range/Units 14:36 17:36 19:52 WBC 4.42 L D (4.8-10.8) K/ul RBC 4.42 L (4.70-6.10) M/uL Hgb 13.9 L (14.0-18.0) g/dl Hct 39.7 L (42.0-52.0) % MCV 89.8 (80.0-100.0) fL MCH 31.4 (25.0-34.0) pg MCHC 35.0 (32.0-36.0) g/dL RDW Std Deviation 44.8 (36.4-46.3) fL RDW Coeff of Maxine 13.6 (11.5-14.5) % Plt Count 142 (130-400) K/uL MPV 10.0 (9.4-12.4) fL Immature Gran % (Auto) 0.5 % Neut % (Auto) 71.7 % Lymph % (Auto) 12.0 % [place] % (Auto) 14.7 % Eos % (Auto) 0.9 % Baso % (Auto) 0.2 % Neut # (Auto) 3.17 (1.40-6.50) K/uL Lymph # (Auto) 0.53 L (1.20-3.40) K/uL [place] # (Auto) 0.65 H (0.11-0.59) K/uL Eos # (Auto) 0.04 (0.00-0.50) K/uL Baso # (Auto) 0.01 (0.00-0.20) K/uL Immature Gran # (Auto) 0.02 (0.01-0.20) K/uL PT 12.4 H (9.0-12.0) Seconds INR 1.2 H (0.9-1.1) APTT 29 (21-31) Seconds PTT Ratio 1.1 Sodium 129 L (136-145) mmol/L Potassium 3.8 (3.5-5.1) mmol/L Chloride 99 (98-107) mmol/L Carbon Dioxide 23 (21-32) mmol/L Anion Gap 7 (3-11) BUN 13 (6-23) mg/dl Creatinine 0.98 (0.6-1.4) mg/dl Est Cr Clr Drug Dosing 70.4 ml/min Est GFR ( Amer) 87.7 ml/min Est GFR (Non-Af Amer) 75.6 ml/min BUN/Creatinine Ratio 13.3 (10-20) Glucose 114 H (70-99(Fasting)) mg/dl Osmolality 267 L (280-300) mOsm/kg Calcium 8.3 L (8.6-10.3) mg/dl Magnesium 1.7 (1.7-2.4) mg/dl Total Bilirubin 1.4 H (0.2-1.0) mg/dl AST 27 (13-39) U/L ALT 31 (7-52) U/L Alkaline Phosphatase 70 (34-104) U/L Troponin I High Sens 5.4 (0-20) pg/ml B-Natriuretic Peptide 108 H (0-100) pg/ml Total Protein 6.8 (6.0-8.3) gm/dl Albumin 4.2 (3.4-5.0) gm/dl Globulin 2.6 (2.5-4.0) gm/dl Albumin/Globulin Ratio 1.6 (0.9-2) TSH 0.812 (0.300-4.500) uIu/ml Urine Color Yellow Urine Appearance Clear (Clear) Urine pH 7.0 (4.5-7.5) Ur Specific [place] 1.017 (1.000-1.030) Urine Protein Trace H (Negative) Urine Glucose (UA) Negative (Negative) Urine Ketones Negative (Negative) Urine Blood Negative (Negative) Urine Nitrite Negative (Negative) Urine Bilirubin Negative (Negative) Urine Urobilinogen Positive H (Negative) Ur Leukocyte Esterase Negative (Negative) Urine WBC (Auto) 0-5 (0-5) /hpf Urine RBC (Auto) 0-2 (0-2) /hpf U Hyaline Cast (Auto) 0-2 (0-2) /lpf U Epithel Cells (Auto) 0-2 (0-2) /hpf Urine Bacteria (Auto) None Seen (None Seen) Urine Osmolality (500-800) mOsm/kg Ur Random Sodium mmol/L 01/06/24 Range/Units 19:59 WBC (4.8-10.8) K/ul RBC (4.70-6.10) M/uL Hgb (14.0-18.0) g/dl Hct (42.0-52.0) % MCV (80.0-100.0) fL MCH (25.0-34.0) pg MCHC (32.0-36.0) g/dL RDW Std Deviation (36.4-46.3) fL RDW Coeff of Maxine (11.5-14.5) % Plt Count (130-400) K/uL MPV (9.4-12.4) fL Immature Gran % (Auto) % Neut % (Auto) % Lymph % (Auto) % [place] % (Auto) % Eos % (Auto) % Baso % (Auto) % Neut # (Auto) (1.40-6.50) K/uL Lymph # (Auto) (1.20-3.40) K/uL [place] # (Auto) (0.11-0.59) K/uL Eos # (Auto) (0.00-0.50) K/uL Baso # (Auto) (0.00-0.20) K/uL Immature Gran # (Auto) (0.01-0.20) K/uL PT (9.0-12.0) Seconds INR (0.9-1.1) APTT (21-31) Seconds PTT Ratio Sodium (136-145) mmol/L Potassium (3.5-5.1) mmol/L Chloride (98-107) mmol/L Carbon Dioxide (21-32) mmol/L Anion Gap (3-11) BUN (6-23) mg/dl Creatinine (0.6-1.4) mg/dl Est Cr Clr Drug Dosing ml/min Est GFR ( Amer) ml/min Est GFR (Non-Af Amer) ml/min BUN/Creatinine Ratio (10-20) Glucose (70-99(Fasting)) mg/dl Osmolality (280-300) mOsm/kg Calcium (8.6-10.3) mg/dl Magnesium (1.7-2.4) mg/dl Total Bilirubin (0.2-1.0) mg/dl AST (13-39) U/L ALT (7-52) U/L Alkaline Phosphatase (34-104) U/L Troponin I High Sens (0-20) pg/ml B-Natriuretic Peptide (0-100) pg/ml Total Protein (6.0-8.3) gm/dl Albumin (3.4-5.0) gm/dl Globulin (2.5-4.0) gm/dl Albumin/Globulin Ratio (0.9-2) TSH (0.300-4.500) uIu/ml Urine Color Urine Appearance (Clear) Urine pH (4.5-7.5) Ur Specific [place] (1.000-1.030) Urine Protein (Negative) Urine Glucose (UA) (Negative) Urine Ketones (Negative) Urine Blood (Negative) Urine Nitrite (Negative) Urine Bilirubin (Negative) Urine Urobilinogen (Negative) Ur Leukocyte Esterase (Negative) Urine WBC (Auto) (0-5) /hpf Urine RBC (Auto) (0-2) /hpf U Hyaline Cast (Auto) (0-2) /lpf U Epithel Cells (Auto) (0-2) /hpf Urine Bacteria (Auto) (None Seen) Urine Osmolality 583 (500-800) mOsm/kg Ur Random Sodium 14 mmol/L Administered Medications Discontinued Medications Apixaban (Apixaban 5 Mg Tablet) 5 mg PO BID [facility] Stop: 02/05/24 21:50 Last Admin: 01/07/24 07:50 Dose: 5 mg Documented By: [facility] Sodium Chloride (Sodium Chloride 1 Gm Tablet) 1 gm PO BID [facility] Stop: 02/06/24 08:59 Last Admin: 01/07/24 08:15 Dose: 1 gm Documented By: [facility] Imaging Data Radiologist's Impression: Chest X-Ray 01/06/24 17:18 SINGLE VIEW CHEST CLINICAL HISTORY: Fluid overload FINDINGS: A PA chest radiograph is compared to study dated 03/26/2023. The cardiomediastinal silhouette is top normal for projection. The pulmonary vasculature is noncongested. The lungs and pleural spaces are clear. No pneumothorax is seen. The skeletal structures are osteopenic. The bony thorax is grossly intact. IMPRESSION: No active disease in the chest. ACT 112: Negative or not required by law. Electronically signed by: Renato Gonzales M.D. 01/06/2024 6:12 PM Discharge Plan Visit Data Chief Complaint: Illness Stated Complaint: water retention, not urinating normally ED Provider: Tigre Iraheta ED Midlevel Provider: Annabelle Sibley Discharge Problem: Acute hyponatremia, Gastroenteritis Patient Disposition: Admitted As Inpatient Condition: Good Discharge Instructions Interventions: ED Discharge Assessment Last Done: 01/06/24 21:33
[2024-01-06 20:11] LABS: Appearance Urine Clear (Clear); Bacteria Urine Automated None Seen (None Seen); Bilirubin Urine Negative (Negative); Blood Urine Negative (Negative); Cast Urine Automated 0-2 /lpf (0-2); Color Urine Yellow; Epithelial Cell Urine Auto 0-2 /hpf (0-2); Glucose Urine UA Negative (Negative); Ketones Urine Negative (Negative); Leukocyte Esterase Urine Negative (Negative); Nitrite Urine Negative (Negative); Protein Urine Trace (Negative); RBC Urine Automated 0-2 /hpf (0-2); Specific Gravity Urine 1.017 (1.000-1.030); Urobilinogen Urine Positive (Negative); WBC Urine Automated 0-5 /hpf (0-5)
--- NOTE | 2024-01-06 20:21 | History & Physical Report ---
Date of Service January 06, 2024 Assessment & Plan (1) Acute hyponatremia: Plan: Admit to [facility] Currently stable nontoxic-appearing Presented back to the ED today after being seen approximately 12 hours ago with nausea, vomiting, and nonbloody diarrhea. Was given IV fluids and discharged home, since then his oral intake has been poor but he has had significantly less urinary output and had approximately 5 pound weight gain Patient was concerned he is having recurrence of SIADH Sodium currently 129, down from 135 as of 01/05/2024 Serum osmolality, urine osmolality, and added at the time of admission Will keep patient n.p.o. until results are back Will hold IV fluids at this time as there is high suspicion for SIADH Home Eliquis for DVT prophylaxis Will repeat sodium level later tonight to monitor AM CBC, CMP, mag, PT/INR (2) Gastroenteritis: Plan: Patient initially developed nausea, nonbloody vomiting and nonbloody diarrhea on the afternoon of 01/05/2024 GI symptoms have currently resolved Will add stool studies if he has further episodes of diarrhea (3) AF (paroxysmal atrial fibrillation): Plan: Currently stable Continue Eliquis and metoprolol (4) BPH with obstruction/lower urinary tract symptoms: Plan: Bladder scan at the time of admission was 75 cc Continue Flomax and finasteride (5) Asthma: Plan: Currently stable on room air, no wheezing on exam Continue home albuterol Plan The patient was discussed with Dr. Garcia at time of admission History of Present Illness Chief Complaint: Ongoing gastrointestinal symptoms, decreased urination Primary Care Provider: Erik Braun MD Gordon is a 73-year-old male with a past medical history significant for atrial fibrillation status post ablation on 03/24/2023 at [facility] (on Eliquis), asthma, hyperlipidemia, BPH, and SIADH who presented to the [facility] ED for the second time in 24 hours for Gastrointestinal symptoms and poor oral intake. He remained stable in the ED. Repeat labs today were significant for decreased white blood cell count of 4.42 (down from 9.68 as of 01/05/2024), sodium of 129 (down from 135 as of 01/05/2024). The patient was not given medications prior to admission. Patient was sitting in bed in no acute distress at time of exam with his bedside, history was obtained from both. They state that the patient started develop nausea, nonbloody emesis, and nonbloody diarrhea afternoon of 01/05/2024. He presented to the ER that evening and was diagnosed with gastroenteritis, however, stool studies were not obtained. He was given IV fluids and discharged home. They state that since he has been home he has had poor oral intake but is diarrhea has subsided. He feels as though he is urinating significantly less than his baseline which made them concerned that he may be having another episode of SIADH. He states that he had 1 fever yesterday with a temperature of 100.6 Fahrenheit, he denies recent chest pain, shortness breath, abdominal pain, dysuria/hematuria, bloody stool/melena, lower extremity swelling, and recent trauma. He did have his evening medications prior to my arrival. We discussed CODE STATUS he is a full code and would want his to make medical decisions for him if he cannot make himself. When asked, the patient and his state that they have were eating cucumbers earlier this week which is consistent with the other episodes of Salmonella infection reported by [facility]. Please refer to Dr. Garcia's attestation for any changes to the treatment plan Allergies Allergy/AdvReac Type Severity Reaction Status Date / Time hazelnut Allergy Unknown Swelling Verified 01/06/24 20:07 of Lip/Tongue/Throat kiwi Allergy Unknown Swelling Verified 01/06/24 20:07 of Lip/Tongue/Throat Penicillins AdvReac Mild UNKNOWN Verified 01/06/24 20:07 Home Medications Medication Instructions Recorded Confirmed Type ketoconazole 2 % shampoo 1 applic topical .COMPLEX #120 mL 11/17/21 01/06/24 Rx albuterol sulfate 90 mcg/actuation 2 puff inhalation Q6H PRN 10/29/22 01/06/24 Rx aerosol inhaler Shortness Of Breath Or Wheezing #8.5 grams apixaban 5 mg tablet (Eliquis) 5 mg PO BID #180 tabs 03/14/23 01/06/24 Rx tamsulosin 0.4 mg capsule 0.4 mg PO HS #90 caps 07/28/23 01/06/24 Rx atorvastatin 20 mg tablet 20 mg PO HS 01/06/24 01/06/24 History finasteride 5 mg tablet 5 mg PO HS 01/06/24 01/06/24 History ketoconazole 2 % topical cream 1 applic topical DAILY PRN FLARE 01/06/24 01/06/24 History metoprolol succinate 25 mg 12.5 mg PO HS 01/06/24 01/06/24 History tablet,extended release 24 hr metronidazole 0.75 % topical cream 1 applic topical BID 01/06/24 01/06/24 History Past Med/Surg History Problem List (Updated 01/07/24 @ 02:16 by Annabelle Sibley PA-C) Acute hyponatremia (Acute) Gastroenteritis (Acute) Nausea vomiting and diarrhea (Acute) Atrial flutter (Acute) Mixed hyperlipidemia AF (paroxysmal atrial fibrillation) (Acute) Allergic rhinitis (Acute) Asthma (Acute) Tubular adenoma of colon (Acute) Hyperglycemia Erectile dysfunction Incomplete emptying of bladder Patent foramen ovale BPH with obstruction/lower urinary tract symptoms (Acute) Sensorineural hearing loss (SNHL) of both ears (Acute) Rosacea Medical History History of colon polyps Acute alteration in mental status Polydipsia Acute hyponatremia History of colon polyps History of COVID-19 Asthma Paroxysmal atrial fibrillation Rosacea Patent foramen ovale Sensorineural hearing loss (SNHL) of both ears Internal hemorrhoids BPH with obstruction/lower urinary tract symptoms Hyperlipidemia Atrial flutter Surgical History Status post ablation operation for arrhythmia History of cardiac radiofrequency ablation History of colonoscopy (~2022) Family History Father Myocardial infarction Mother Leukemia Other Hypertension Denies family history of Crohn's disease Colorectal cancer Ulcerative colitis Social History Smoking Status: Never smoker Second Hand Exposure: No; Do You Dip or Chew Tobacco: No; Hx Alcohol Use: No Hx Substance Use: No Preferred Language: Croatian Communication Ability: Effective Roustabout Supervisor Required: No Beliefs That Will Affect Care: None Current Living Situation: Spouse Other Information That Helps Us Care for You: No Feels Safe at Home: Yes Safety Concerns: Feels Safe At This Time Assistive Devices: None Physical Exam Physical Exam: Physical Exam: General: In no acute distress, stated age, ill-appearing but non-toxic HEENT: Normocephalic, atraumatic, no scleral icterus, pupils around round, symmetrical, and reactive to light, moist mucus membranes, trachea midline, no thyromegaly Chest/Pulm: No respiratory distress, symmetrical chest expansion, clear breath sounds throughout Cardiac: RRR, no murmurs noted Abdomen: Negative for ascites and bruising, normoactive bowel sounds, soft, non-tender to palpation throughout Musculoskeletal: Symmetrical and without signs of acute trauma, upper and lower extremities with full ROM, no atrophy, spasticity, or flaccidity Extremities: Radial, dorsalis pedis, and posterior tibial pulses are intact and symmetrical, no edema noted in the BL LE's Skin: Warm, dry, no rashes , lesions, or scars noted Neuro: Alert and oriented to person, place, month, year, and president, no focal defects, no tremors noted Psych: No acute distress, calm and cooperative during the exam Results & Data Results & Data Vital Signs (Past 12 Hours) Vital Signs Temp Pulse Pulse Resp BP BP Pulse Ox 01/06/24 20:04 68 16 125/73 99 01/06/24 17:14 36.7 C 79 20 133/72 96 O2 Del Method 01/06/24 20:04 Room Air 01/06/24 17:14 Room Air Laboratory Results Abnormal lab results 01/06/24 01/06/24 01/06/24 Range/Units 14:36 17:36 19:52 WBC 4.42 L D (4.8-10.8) K/ul RBC 4.42 L (4.70-6.10) M/uL Hgb 13.9 L (14.0-18.0) g/dl Hct 39.7 L (42.0-52.0) % Lymph # (Auto) 0.53 L (1.20-3.40) K/uL [place] # (Auto) 0.65 H (0.11-0.59) K/uL PT 12.4 H (9.0-12.0) Seconds INR 1.2 H (0.9-1.1) Sodium 129 L (136-145) mmol/L Glucose 114 H (70-99(Fasting)) mg/dl Osmolality 267 L (280-300) mOsm/kg Calcium 8.3 L (8.6-10.3) mg/dl Total Bilirubin 1.4 H (0.2-1.0) mg/dl B-Natriuretic Peptide 108 H (0-100) pg/ml Urine Protein Trace H (Negative) Urine Urobilinogen Positive H (Negative) Code Status & VTE Plan Code Status Full Code VTE Prophylaxis Plan VTE Prophylaxis will be ordered: Yes Supervising Physician Co-Signing Physician Notes Patient seen and examined, chart reviewed, case discussed with JULIANN Krishna and I agree with the assessment and plan as above Patient with hyponatremia, h/o SIADH. Reports recent nausea/vomiting/diarrhea as well as 5# weight gain On exam he is resting comfortably, NAD Skin without rash MMM, Neck supple, no JVD +S1/S2, regular CTA Abd soft, NT/ND Labs and images reviewed Assessment/Plan -Continue to monitor Na levels -Fluid restriction -Remainder as above PG Care Time/CCT Total # of Minutes Spent Total Time Spent with Patient: Total time spent is greater than 50% in coordination of care (as documented) at patient's floor/unit and/or counseling patient: C[place] [address] INT INP/OBS CARE 3/75MIN Patient Type Established Medical Decision Making High Complexity Diagnoses Acute hyponatremia E87.1 Gastroenteritis K52.9 AF (paroxysmal atrial fibrillation) I48.0 BPH with obstruction/lower urinary tract symptoms N40.1; N13.8 Asthma J45.909
[2024-01-06 21:18] LABS: Thyroid Stimulating Hormone 0.812 uIu/ml (0.300-4.500)
[2024-01-06] MEDS ORDERED: ATORVASTATIN 20 MG TAB PO SCH (21:51)
[2024-01-06] MEDS ORDERED: FINASTERIDE 5 MG TAB PO SCH (21:51)
[2024-01-06] MEDS ORDERED: TAMSULOSIN HCL 0.4 MG CAP PO SCH (21:51)
[2024-01-07 06:13] LABS: Basophils # (auto) 0.01 K/uL (0.00-0.20); Basophils % (auto) 0.3 %; Eosinophils # (auto) 0.03 K/uL (0.00-0.50); Eosinophils % (auto) 0.9 %; Hematocrit (blood only) 35.4 % (42.0-52.0); Hemoglobin 12.3 g/dl (14.0-18.0); Immature Granulocytes # (auto) 0.02 K/uL (0.01-0.20); Immature Granulocytes % (auto) 0.6 %; Lymphocytes # (auto) 1.03 K/uL (1.20-3.40); Mean Corpuscular Hemoglobin 31.2 pg (25.0-34.0); Mean Corpuscular Hgb Conc 34.7 g/dL (32.0-36.0); Mean Corpuscular Volume 89.8 fL (80.0-100.0); Mean Platelet Volume 10.3 fL (9.4-12.4); Monocytes # (auto) 0.82 K/uL (0.11-0.59); Monocytes % (auto) 25.5 %; Neutrophils # (auto) 1.31 K/uL (1.40-6.50); Neutrophils % (auto) 40.7 %; Platelet Count 120 K/uL (130-400); RDW Coefficient of Variation 13.5 % (11.5-14.5); RDW Standard Deviation 44.4 fL (36.4-46.3); Red Blood Count 3.94 M/uL (4.70-6.10); White Blood Count 3.22 K/ul (4.8-10.8)
[2024-01-07 06:26] LABS: Albumin Globulin Ratio 1.5 (0.9-2); Albumin Level 3.5 gm/dl (3.4-5.0); BUN Creatinine Ratio 11.6 (10-20); Bilirubin,Total 1.1 mg/dl (0.2-1.0); Calcium 7.7 mg/dl (8.6-10.3); Creatinine Clr Calc Pharmacy 72.7 ml/min; Est GFR (Non-African American) 78.5 ml/min; Globulin 2.3 gm/dl (2.5-4.0); Magnesium 1.9 mg/dl (1.7-2.4); Potassium 3.7 mmol/L (3.5-5.1); Total Protein 5.8 gm/dl (6.0-8.3)
[2024-01-07 06:30] LABS: INR 1.2 (0.9-1.1); Prothrombin Time 12.9 Seconds (9.0-12.0)
[2024-01-07] MEDS: APIXABAN 5 MG TABLET PO SCH (07:50)
[2024-01-07] MEDS: SODIUM CHLORIDE 1 GM TABLET PO SCH (08:15)
--- NOTE | 2024-01-07 09:25 | Discharge Summary ---
Date of Service January 07, 2024 Admission HPI Per Admitting Provider Gordon is a 73-year-old male with a past medical history significant for atrial fibrillation status post ablation on 03/24/[address] [facility] (on Eliquis), asthma, hyperlipidemia, BPH, and SIADH who presented to the [facility] ED for the second time in 24 hours for Gastrointestinal symptoms and poor oral intake. He remained stable in the ED. Repeat labs today were significant for decreased white blood cell count of 4.42 (down from 9.68 as of 01/05/2024), sodium of 129 (down from 135 as of 01/05/2024). The patient was not given medications prior to admission. Patient was sitting in bed in no acute distress at time of exam with his bedside, history was obtained from both. They state that the patient started develop nausea, nonbloody emesis, and nonbloody diarrhea afternoon of 01/05/2024. He presented to the ER that evening and was diagnosed with gastroenteritis, however, stool studies were not obtained. He was given IV fluids and discharged home. They state that since he has been home he has had poor oral intake but is diarrhea has subsided. He feels as though he is urinating significantly less than his baseline which made them concerned that he may be having another episode of SIADH. He states that he had 1 fever yesterday with a temperature of 100.6 Fahrenheit, he denies recent chest pain, shortness breath, abdominal pain, dysuria/hematuria, bloody stool/melena, lower extremity swelling, and recent trauma. He did have his evening medications prior to my arrival. We discussed CODE STATUS he is a full code and would want his to make medical decisions for him if he cannot make himself. When asked, the patient and his state that they have were eating cucumbers earlier this week which is consistent with the other episodes of Salmonella infection reported by [facility]. Please refer to Dr. Garcia's attestation for any changes to the treatment plan Principal Diagnosis Mild hyponatremia from SIADH, recent viral gastroenteritis Discharge Exam General-alert and oriented x3, no fever, no chills HEENT-head atraumatic and normocephalic, pupils equal and reactive to light, extraocular muscles intact Neck-no lymphadenopathy or thyromegaly, trachea midline Chest-clear to auscultation. No rales, wheezing or rhonchi Cardiac-regular rate and rhythm, normal S1 and S2 Abdomen-normal bowel sounds, no hepatosplenomegaly Extremities-no cyanosis, clubbing, or edema Neuro-cranial nerves II through XII intact, motor and sensory function within normal limits, strength symmetrical, no focal deficits Psych-normal affect, normal mood Discharge Data Allergies Allergy/AdvReac Type Severity Reaction Status Date / Time hazelnut Allergy Unknown Swelling Verified 01/06/24 20:07 of Lip/Tongue/Throat kiwi Allergy Unknown Swelling Verified 01/06/24 20:07 of Lip/Tongue/Throat Penicillins AdvReac Mild UNKNOWN Verified 01/06/24 20:07 Consultations 01/06/24 20:59 ED Decision to Admit Stat Hospital Course (1) Acute hyponatremia: History of SIADH. Mild hyponatremia and hypoosmolarity present on admission. Sodium is now up to 130 and he is asymptomatic. Sodium chloride tablets have been started. He will be discharged home today, January 06 and sodium level will be rechecked on January 08 with results sent to his PCP (2) Gastroenteritis: Recent viral gastroenteritis with nausea, vomiting, diarrhea. Resolved (3) AF (paroxysmal atrial fibrillation): Stable. Continue Eliquis and metoprolol (4) BPH with obstruction/lower urinary tract symptoms: Stable. Continue Flomax and finasteride (5) Asthma: Stable. Continue albuterol inhaler as needed Plan Home today, January 06. Continue sodium chloride tablets twice daily. Repeat BMP on January 08 with results to PCP Total Time Total Time Spent Total Time Spent (In Minutes): 50 minutes Discharge Plan Discharge Items Patient Disposition: Home - Self-Care Reason For Visit: GASTROENTERITIS, HYPONATREMIA Discharge Diagnosis: SIADH with hyponatremia Condition on Discharge: Good Activity: Resume your previous activity Non-emergency contact: Primary Care Provider Call non-emergency contact if: your symptoms worsen Follow-up/Referrals: Erik Braun MD [Primary Care Provider] - Diet: Regular and Heart Healthy Addtl Attending Provider Instructions: Take sodium chloride tablets twice daily. Lab test on January 08. Results will be sent to Dr. Borja. Drink fluids only when feeling thirsty and with meals Pending Studies at Discharge: No Stand-Alone Forms: [employer], Smoking Cessation Medications and DC Order Prescriptions: New sodium chloride 1,000 mg Tablet,Soluble 1,000 mg PO BID Qty: 14 0RF Continued Eliquis 5 mg tablet 5 mg PO BID Qty: 180 3RF Patient Comments: usually takes 730 am and 730 pm ketoconazole 2 % shampoo 1 applic topical .COMPLEX Qty: 120 2RF Rx Instructions: Wash scalp 2-3 times weekly. Let sit for 3-5 minutes prior to rinsing.; tamsulosin 0.4 mg capsule 0.4 mg PO HS Qty: 90 3RF albuterol sulfate 90 mcg/actuation HFA aerosol inhaler 2 puff INHALATION Q6H PRN (Reason: Shortness Of Breath Or Wheezing) Qty: 8.5 11RF atorvastatin 20 mg tablet 20 mg PO HS Rx Instructions: TAKE 1 TABLET AT BEDTIME metronidazole 0.75 % cream 1 applic topical BID Rx Instructions: Apply to areas of the face twice daily as directed. metoprolol succinate 25 mg tablet extended release 24 hr 12.5 mg PO HS ketoconazole 2 % cream 1 applic topical DAILY PRN (Reason: FLARE) finasteride 5 mg tablet 5 mg PO HS Discharge Orders: Discharge Order (Routine); Ordered 01/07/24 Ordered By: Carlos Rodriguez Admission Data Admit Date/Time: 01/06/24 20:20 Attending Provider: Carlos Rodriguez Admit Provider: Usha Garcia Primary Care Provider: Erik Braun Other Providers: Usha Garcia Coding Level of Care Code 61166 INP/OBS DISCH >30 MIN Diagnoses Acute hyponatremia E87.1 Gastroenteritis K52.9 AF (paroxysmal atrial fibrillation) I48.0 BPH with obstruction/lower urinary tract symptoms N40.1; N13.8 Asthma J45.909
[2024-01-07] MEDS ORDERED: METOPROLOL SUCC 25MG EXT REL TAB PO SCH (21:00)
== END 2024-01-07 10:48 | disposition home or self-care (01) | DRG 644 ==
LOC: ED 17:10 → SUATTDRO 20:20 → 3E 20:20 → INTOOBSV 20:20 → 3E 21:33